=== PATIENT | female | born 1965 | race Caucasian/White ===

== ENCOUNTER 2019-12-25 18:02 | Emergency (ER) | payer OTHER ==
[~2019-12-25] VITALS: Ht 167.6 cm; Wt 113.6 kg
--- NOTE | 2019-12-25 18:42 | PHYS DOC ---
General Adult EDM: Chief Complaint: HEADACHE HPI: HPI: 54-year-old female presents with migraine headache. She tells me that she has had this headache for about a week. It is in the front of her head behind her eyes. This is typical for her. She does state that this episode is worse than what she has had recently. He has tried her home remedies without relief. She denies trauma or falls. She denies fever or chills. She does have some sinus congestion and postnasal drip. No known COVID-19 exposures. Review of Systems: Review of Systems: Constitutional: Denies fever or chills Eyes: Denies change in visual acuity HENT: Nasal congestion. Denies sore throat Respiratory: Denies cough or shortness of breath Cardiovascular: Denies chest pain or edema GI: Denies abdominal pain, nausea, vomiting, bloody stools or diarrhea : Denies dysuria Musculoskeletal: Denies back pain or joint pain Integument: Denies rash Neurologic: Headache. Denies focal weakness or sensory changes Endocrine: Denies polyuria or polydipsia Lymphatic: Denies swollen glands Psychiatric: Denies depression or anxiety Current Medications: Current Meds: Current Medications Medications (Trade) Dose Ordered Sig/Tati Start Time Stop Time Status Last Admin Dose Admin Diphenhydramine HCl (Benadryl) 50 mg 1X ONCE 12/25/19 18:45 12/25/19 18:46 Ketorolac Tromethamine (Toradol 30mg Vial) 30 mg 1X ONCE 12/25/19 18:45 12/25/19 18:46 Ondansetron HCl (Zofran) 4 mg 1X ONCE 12/25/19 18:45 12/25/19 18:46 Sodium Chloride 1,000 ml @ 1,000 mls/hr 1X ONCE 12/25/19 19:00 12/25/19 19:59 Allergies: Allergies: Allergies Coded Allergies Type Severity Reaction Last Updated Verified codeine Allergy Intermediate 12/25/19 Yes haloperidol Allergy Intermediate 12/25/19 Yes metoclopramide Allergy Intermediate 12/25/19 Yes prochlorperazine Allergy Intermediate 12/25/19 Yes Physical Exam: PE: Constitutional: Well developed, well nourished, no acute distress, non-toxic appearance. [] HENT: Normocephalic, atraumatic, bilateral external ears normal, oropharynx moist, no oral exudates, nose normal. [] Eyes: PERRLA, EOMI, conjunctiva normal, no discharge. Photophobia. [] Neck: Normal range of motion, no tenderness, supple, no stridor. [] Cardiovascular: Heart rate regular rhythm, no murmur [] Lungs & Thorax: Bilateral breath sounds clear to auscultation [] Abdomen: Vomiting. Bowel sounds normal, soft, no tenderness, no masses, no pulsatile masses. [] Skin: Warm, dry, no erythema, no rash. [] Back: No tenderness, no CVA tenderness. [] Extremities: No tenderness, no cyanosis, no clubbing, ROM intact, no edema. [] Neurologic: Alert and oriented X 3, normal motor function, normal sensory function, no focal deficits noted. [] Psychologic: Affect normal, judgement normal, mood normal. [] EKG: EKG: [] Radiology/Procedures: Radiology/Procedures: [] Heart Score: Risk Factors: Risk Factors: DM, Current or recent (<one month) smoker, HTN, HLP, family history of CAD, obesity. Risk Scores: Score 0 - 3: 2.5% MACE over next 6 weeks - Discharge Home Score 4 - 6: 20.3% MACE over next 6 weeks - Admit for Clinical Observation Score 7 - 10: 72.7% MACE over next 6 weeks - Early Invasive Strategies Course & Med Decision Making: Course & Med Decision Making Pertinent Labs and Imaging studies reviewed. (See chart for details) The patient was given 50 mg of Benadryl, 30 mg of Toradol, liter normal saline, 4 mg of Zofran, 10 mg of dexamethasone IV and 25 mg of Phenergan rectally. Patient still had a headache so I gave her 2 mg of Ativan and eventually 1 mg of Dilaudid. She is finally feeling better would like to go home. She is stable for discharge at this time. The patient's labs are unremarkable. [] Dragon Disclaimer: Willy Disclaimer: This electronic medical record was generated, in whole or in part, using a voice recognition dictation system. Departure Departure: Impression: Primary Impression: Migraine headache Qualified Codes: G43.011 - Migraine without aura, intractable, with status migrainosus Disposition: 01 DC HOME SELF CARE/HOMELESS Condition: STABLE Referrals: PCP,NO (PCP) Patient Instructions: Migraine Headache, [id number] RENEE MOYA DO Dec 25, 2019 18:42
[2019-12-25] MEDS ORDERED: KETOROLAC 30 MG/ML VIAL. IVP ONE (18:45)
[2019-12-25] MEDS ORDERED: ONDANSETRON PF 4 MG/2 ML VIAL. IVP ONE (18:45)
[2019-12-25] MEDS ORDERED: diphenhydrAMINE 50 MG/ML VIAL IVP ONE (18:45)
[2019-12-25] MEDS ORDERED: DEXAMETHASONE SOD PHOS 10 MG/ML VIAL. IV ONE (19:00)
[2019-12-25] MEDS ORDERED: IV NORMAL SALINE 1,000ML 1,000 ML IV ONE (19:00)
[2019-12-25] MEDS ORDERED: PROMETHAZINE 25 MG SUPP.RECT. ONE (19:14)
[2019-12-25] MEDS ORDERED: PROMETHAZINE 25 MG SUPP.RECT. PR ONE (19:30)
[2019-12-25 19:31] LABS: BASO % 1 % (0-3); EOS % 1 % (0-3); HEMATOCRIT 37.4 % (36.0-47.0); HEMOGLOBIN 12.6 g/dL (12.0-15.5); LYMPH # 1.5 x10^3/uL (1.0-4.8); LYMPH % 16 % (24-48); MEAN CORPUSCULAR HEMOGLOBIN 29 pg (25-35); MEAN CORPUSCULAR HGB CONC 34 g/dL (31-37); MEAN CORPUSCULAR VOLUME 84 fL (79-100); MONO # 0.3 x10^3/uL (0.0-1.1); MONO % 4 % (0-9); NEUT % 79 % (31-73); PLATELET COUNT 296 x10^3/uL (140-400); RED BLOOD COUNT 4.43 x10^6/uL (3.50-5.40); RED CELL DISTRIBUTION WIDTH 13.7 % (11.5-14.5); WHITE BLOOD COUNT 8.9 x10^3/uL (4.0-11.0)
[2019-12-25 19:34] LABS: CALCIUM 8.7 mg/dL (8.5-10.1); GFR 57.8; POTASSIUM 3.7 mmol/L (3.5-5.1)
[2019-12-25 19:42] LABS: ALBUMIN 3.9 g/dL (3.4-5.0); ALBUMIN/GLOBULIN RATIO 1.1 (1.0-1.7); TOTAL BILIRUBIN 0.3 mg/dL (0.2-1.0); TOTAL PROTEIN 7.6 g/dL (6.4-8.2)
[2019-12-25] MEDS ORDERED: QUET50TA5 PO (19:47)
[2019-12-25] MEDS ORDERED: phenergan supp RC (19:47)
[2019-12-25] MEDS ORDERED: SERT100T PO (19:47)
[2019-12-25] MEDS ORDERED: ALPR0.5T6 PO (19:47)
[2019-12-25] MEDS ORDERED: OMEP20CA16 PO (19:47)
[2019-12-25] MEDS ORDERED: ONDA4TAB7 PO (19:47)
[2019-12-25] MEDS ORDERED: RIZA10TA PO (19:47)
[2019-12-25] MEDS ORDERED: ALBU2.5V8 INH (19:47)
[2019-12-25] MEDS ORDERED: CLON0.5T4 PO (19:47)
[2019-12-25] MEDS ORDERED: TRAZ-125 PO (19:47)
[2019-12-25] MEDS ORDERED: HYDROmorphone PF 1 MG/ML DISP.SYRIN IVP ONE (21:00)
[2019-12-25 21:02] LABS: BARBITURATES NEG (NEG); BENZODIAZEPINES NEG (NEG); CANNABINOIDS NEG (NEG); COCAINE NEG (NEG); METHADONE NEG (NEG); OPIATES NEG (NEG); PHENCYCLIDINE NEG (NEG)
[2019-12-25 21:03] LABS: AMPHETAMINE/METHAMPHETAMINE NEG (NEG)
[2019-12-25 21:07] LABS: BILIRUBIN,URINE NEG (NEG); CLARITY,URINE CLEAR; COLOR,URINE YELLOW; GLUCOSE,URINE NEG (NEG)
[2019-12-25 21:08] LABS: BACTERIA,URINE 0 /HPF (0-FEW); NITRITE,URINE NEG (NEG); RBC,URINE RARE /HPF (0-2); SQUAMOUS EPITHELIAL CELL,UR OCC /LPF; UROBILINOGEN,URINE 0.2 mg/dL (0.2 mg/dL); WBC,URINE OCC /HPF (0-4)
[2019-12-25 22:20] VITALS: BP 137/84
== END 2019-12-25 22:25 | disposition home or self-care (01) ==
LOC: ER 18:02
DX: G43.011 Migraine without aura, intractable, with status migrainosus (principal); Z88.5 Allergy status to narcotic agent; Z88.8 Allergy status to other drugs, medicaments and biological substances
CPT/HCPCS: 36415; 80053; 80307; 81001; 85025; 96361; 96374; 96375; 99284; J1100; J1170; J1200; J1885; J2060; J2405; J7030

== ENCOUNTER 2020-01-01 23:35 | Emergency (ER) | payer OTHER ==
[~2020-01-01] VITALS: Ht 167.6 cm; Wt 113.6 kg
[~2020-01-01 23:35] MED LIST: ALBU2.5V8 INH; ALPR0.5T6 PO; CLON0.5T4 PO; OMEP20CA16 PO; ONDA4TAB7 PO; QUET50TA5 PO; RIZA10TA PO; SERT100T PO; TRAZ-125 PO; phenergan supp RC
[2020-01-01] MEDS ORDERED: IV NORMAL SALINE 1,000ML 1,000 ML IV ONE (23:45)
--- NOTE | 2020-01-01 23:54 | PHYS DOC ---
Past History Past Medical History: Anxiety, Bipolar, Depression, Diabetes, GERD, IBS, Migraines, Sinusitis, Other Additional Past Medical Histor: Geovanny's auto immune, sleep apnea,bad knees,incontinence, sinus mass;TBI Past Surgical History: , Tonsillectomy, Other Additional Past Surgical Histo: nasal surgery-bone spur Alcohol Use: None General Adult HPI: HPI: History obtained from patient. Patient is a 54-year-old female with multiple comorbidities including Geovanny's thyroiditis, chronic migraines who presents with complaint headache. She states he has had a headache for the past 2 weeks. She notes the first headache began 2 weeks ago. She was seen her facility 5 days ago and did get symptomatic relief. States the headache returned the following day. States that been constant for 3 days. States it is frontal and throbbing in nature. Notes his headache is similar to previous headaches. Does state that she has been seen by multiple neurologist. States she is transitioning between neurologist. States she does have multiple allergies to medications including codeine, Haldol, Reglan, and Compazine. She states these reactions are anaphylactic in nature. Denies fevers. Does note nausea and vomiting. Does note photophobia and phonophobia. Does note some mild clear nasal discharge that is been present constantly. She says she only has this. States she has tried Maxalt at home with minimal relief. She has tried oral Zofran with minimal relief. Patient denies acute onset of headache reaching maximal intensity in under one hour. This is neither the worst headache that Patient has ever experienced, nor was the onset timed with exertional activity or trauma. Patient has not experienced any fever, unusual neck pain or stiffness, syncope, or near syncope. Patient denies numbness, tingling, or weakness of the extremities. Patient also denies personal history of intracranial hemorrhage (including SAH), aneurysm, or AV malformation. Review of Systems: Review of Systems: Constitutional: Denies fever or chills Eyes: Denies change in visual acuity HENT: Denies nasal congestion or sore throat Respiratory: Denies cough or shortness of breath Cardiovascular: Denies chest pain or edema GI: Denies abdominal pain, nausea, vomiting, bloody stools or diarrhea : Denies dysuria Musculoskeletal: Denies back pain or joint pain Integument: Denies rash Neurologic: Positive for headache Endocrine: Denies polyuria or polydipsia Lymphatic: Denies swollen glands Psychiatric: Denies depression or anxiety Current Medications: Current Meds: Current Medications Medications (Trade) Dose Ordered Sig/Tati Start Time Stop Time Status Last Admin Dose Admin Sodium Chloride 1,000 ml @ 1,000 mls/hr 1X ONCE 01/01/20 23:45 01/02/20 00:44 Allergies: Allergies: Allergies Coded Allergies Type Severity Reaction Last Updated Verified codeine Allergy Intermediate 12/25/19 Yes haloperidol Allergy Intermediate 12/25/19 Yes metoclopramide Allergy Intermediate 12/25/19 Yes prochlorperazine Allergy Intermediate 12/25/19 Yes Physical Exam: PE: Constitutional: Well developed, well nourished, no acute distress, non-toxic appearance. [] HENT: Normocephalic, atraumatic, bilateral external ears normal, oropharynx moist, no oral exudates, nose normal. [] Eyes: PERRLA, EOMI, conjunctiva normal, no discharge. [] Neck: Normal range of motion, no tenderness, supple, no stridor. [] Cardiovascular:Heart rate regular rhythm, no murmur [] Lungs & Thorax: Bilateral breath sounds clear to auscultation [] Abdomen: soft, no tenderness, no masses, no pulsatile masses. [] Skin: Warm, dry, no erythema, no rash. [] Back: No tenderness, no CVA tenderness. [] Extremities: No tenderness, no cyanosis, no clubbing, ROM intact, no edema. [] Neurologic: Alert with intact cognitive function. No aphasia, dysarthria, or neglect. GCS 15. Pupils 3 mm briskly reactive b/l. No APD present. Cranial nerves 2-12 grossly intact; no facial asymmetry present, tongue midline, shoulder shrugging strength intact. Strength 5/5 and symmetric throughout. Light touch sensation intact throughout. Cerebellar testing appropriate without evidence of dysdiadochokinesia. DTR's 2+ in all 4 extremities. Negative pronator drift bilaterally. Gait normal Psychologic: Affect normal, judgement normal, mood normal. [] Current Patient Data: Labs: Laboratory Tests Test 01/02/20 00:30 White Blood Count 8.5 x10^3/uL Red Blood Count 4.46 x10^6/uL Hemoglobin 12.8 g/dL Hematocrit 37.7 % Mean Corpuscular Volume 85 fL Mean Corpuscular Hemoglobin 29 pg Mean Corpuscular Hemoglobin Concent 34 g/dL Red Cell Distribution Width 13.5 % Platelet Count 309 x10^3/uL Neutrophils (%) (Auto) 73 % Lymphocytes (%) (Auto) 23 % Monocytes (%) (Auto) 4 % Eosinophils (%) (Auto) 0 % Basophils (%) (Auto) 1 % Neutrophils # (Auto) 6.2 x10^3uL Lymphocytes # (Auto) 1.9 x10^3/uL Monocytes # (Auto) 0.3 x10^3/uL Eosinophils # (Auto) 0.0 x10^3/uL Basophils # (Auto) 0.0 x10^3/uL Sodium Level 139 mmol/L Potassium Level 3.9 mmol/L Chloride Level 101 mmol/L Carbon Dioxide Level 30 mmol/L Anion Gap 8 Blood Urea Nitrogen 11 mg/dL Creatinine 1.0 mg/dL Estimated GFR (Cockcroft-Gault) 57.8 Glucose Level 110 mg/dL Calcium Level 9.2 mg/dL Current Medications Medications (Trade) Dose Ordered Sig/Tati Route PRN Reason Start Time Stop Time Status Last Admin Dose Admin Sodium Chloride 1,000 ml @ 1,000 mls/hr 1X ONCE IV 01/01/20 23:45 01/02/20 00:44 DC 01/02/20 00:27 Ondansetron HCl (Zofran) 4 mg 1X ONCE IVP 01/02/20 00:00 01/02/20 00:01 DC 01/02/20 00:27 Ketorolac Tromethamine (Toradol 15mg Vial) 15 mg 1X ONCE IVP 01/02/20 00:00 01/02/20 00:02 DC 01/02/20 00:28 Dexamethasone Sodium Phosphate (Decadron) 10 mg 1X ONCE IV 01/02/20 00:00 01/02/20 00:02 DC 01/02/20 00:28 EKG: EKG: [] Radiology/Procedures: Radiology/Procedures: [address] [address] IMAGING REPORT Signed PATIENT: JUAN QUIROS ACCOUNT: [id number] : 1965 LOCATION: ER AGE: 54 SEX: F EXAM STATUS: PRE ER ORD. PHYSICIAN: MAN GAY DO REASON: LIU PROCEDURE: CT HEAD WO CONTRAST INDICATION: Reason: LIU / Spl. Instructions: / History: COMPARISON: None. TECHNIQUE: Axial CT images obtained through the head without intravenous contrast. One or more of the following individualized dose reduction techniques were utilized for this examination: 1. Automated exposure control; 2. Adjustment of the mA and/or kV according to patient size; 3. Use of iterative reconstruction technique. FINDINGS: No intracranial hemorrhage. No midline shift. Basal cisterns patent. Ventricles and sulci are unremarkable. No acute osseous abnormality. Orbits and paranasal sinuses unremarkable. IMPRESSION: * No acute intracranial hemorrhage. Electronically signed by: Gavin Flores MD (01/02/2020 12:48 AM) [id number] DICTATED AND SIGNED BY: GAVIN FLORES MD DATE: 01/02/20 0048 CC: VIKY JAUREGUI DO; MAN GAY DO ~ [] Heart Score: Risk Factors: Risk Factors: DM, Current or recent (<one month) smoker, HTN, HLP, family history of CAD, obesity. Risk Scores: Score 0 - 3: 2.5% MACE over next 6 weeks - Discharge Home Score 4 - 6: 20.3% MACE over next 6 weeks - Admit for Clinical Observation Score 7 - 10: 72.7% MACE over next 6 weeks - Early Invasive Strategies Course & Med Decision Making: Course & Med Decision Making Pertinent Labs and Imaging studies reviewed. (See chart for details) [] Patient is a 54-year-old female who presents with chief complaint of migraine headache. She states she has these headaches frequently. States today symptoms are no different than normal. CT head imaging was obtained given the patient was seen a few days ago and did not have head imaging. This was unr emarkable. Labs been unremarkable. Patient was given multiple medications to treat her migraine per her migraine protocol that she presented with. Multiple medications were used and did get some relief of her headache. Given her multiple reported anaphylactic allergies to common migraine medications these were avoided. Repeat examination patient's headache has improved significantly. Repeat neurologically remained stable. Overall low suspicion for emergent etiology regarding her headache. She was encouraged to follow-up with her neurologist for further care. Return precautions were discussed and understood. She is stable for discharge home. Willy Disclaimer: Willy Disclaimer: This electronic medical record was generated, in whole or in part, using a voice recognition dictation system. Departure Departure: Impression: Primary Impression: Headache Qualified Codes: R51.9 - Headache, unspecified Disposition: 01 DC HOME SELF CARE/HOMELESS Condition: STABLE Referrals: VIKY JAUREGUI DO (PCP) Patient Instructions: Recurrent Migraine Headache Additional Instructions: Please follow-up with your neurologist in the next 2 to 3 days. [facility]rology - [place] [address] [place] [address] MAN GAY DO Jan 01, 2020 23:54
[2020-01-02] MEDS ORDERED: KETOROLAC 15 MG/ML VIAL. IVP ONE
[2020-01-02] MEDS ORDERED: DEXAMETHASONE SOD PHOS 4 MG/ML VIAL. IV ONE
[2020-01-02] MEDS ORDERED: ONDANSETRON PF 4 MG/2 ML VIAL. IVP ONE
[2020-01-02 00:51] LABS: BASO % 1 % (0-3); EOS % 0 % (0-3); HEMATOCRIT 37.7 % (36.0-47.0); HEMOGLOBIN 12.8 g/dL (12.0-15.5); LYMPH # 1.9 x10^3/uL (1.0-4.8); LYMPH % 23 % (24-48); MEAN CORPUSCULAR HEMOGLOBIN 29 pg (25-35); MEAN CORPUSCULAR HGB CONC 34 g/dL (31-37); MEAN CORPUSCULAR VOLUME 85 fL (79-100); MONO # 0.3 x10^3/uL (0.0-1.1); MONO % 4 % (0-9); NEUT # 6.2 x10^3uL (1.8-7.7); NEUT % 73 % (31-73); PLATELET COUNT 309 x10^3/uL (140-400); RED BLOOD COUNT 4.46 x10^6/uL (3.50-5.40); RED CELL DISTRIBUTION WIDTH 13.5 % (11.5-14.5); WHITE BLOOD COUNT 8.5 x10^3/uL (4.0-11.0)
--- NOTE | 2020-01-02 00:51 | RAD ---
INDICATION: Reason: LIU / Spl. Instructions: / History: COMPARISON: None. TECHNIQUE: Axial CT images obtained through the head without intravenous contrast. One or more of the following individualized dose reduction techniques were utilized for this examination: 1. Automated exposure control; 2. Adjustment of the mA and/or kV according to patient size; 3. Use of iterative reconstruction technique. FINDINGS: No intracranial hemorrhage. No midline shift. Basal cisterns patent. Ventricles and sulci are unremarkable. No acute osseous abnormality. Orbits and paranasal sinuses unremarkable. IMPRESSION: * No acute intracranial hemorrhage. Electronically signed by: Gavin Sandoval MD (01/02/2020 12:48 AM) [id number]
[2020-01-02 00:57] LABS: CALCIUM 9.2 mg/dL (8.5-10.1); GFR 57.8; POTASSIUM 3.9 mmol/L (3.5-5.1)
[2020-01-02] MEDS ORDERED: diphenhydrAMINE 50 MG/ML VIAL IVP ONE (01:30)
[2020-01-02] MEDS ORDERED: PROMETHAZINE 12.5 MG SUPP.RECT. PR ONE (01:30)
[2020-01-02] MEDS ORDERED: MAGNESIUM SULFATE 2GM 50 ML IV ONE (01:30)
[2020-01-02] MEDS ORDERED: SUMAtriptan SUCCINATE 50 MG TABLET PO ONE ×2 (02:30→02:39)
[2020-01-02 03:15] VITALS: BP 115/61
== END 2020-01-02 03:15 | disposition home or self-care (01) ==
LOC: ER 23:35
DX: G43.909 Migraine, unspecified, not intractable, without status migrainosus (principal); R11.2 Nausea with vomiting, unspecified; H53.143 Visual discomfort, bilateral; F41.9 Anxiety disorder, unspecified; F31.9 Bipolar disorder, unspecified; E11.9 Type 2 diabetes mellitus without complications; K21.9 Gastro-esophageal reflux disease without esophagitis; K58.9 Irritable bowel syndrome, unspecified; Z88.5 Allergy status to narcotic agent; Z88.8 Allergy status to other drugs, medicaments and biological substances
CPT/HCPCS: 36415; 70450; 80048; 81025; 85025; 96361; 96365; 96366; 96375; 99285; J1100; J1200; J1885; J2405; J3475; J7030

== ENCOUNTER 2020-05-06 15:48 | Emergency (ER) | payer OTHER ==
[~2020-05-06] VITALS: Ht 167.6 cm; Wt 120.0 kg
[2020-05-06 16:57] LABS: BASO % 1 % (0-3); EOS # 0.1 x10^3/uL (0.0-0.7); EOS % 2 % (0-3); HEMATOCRIT 36.5 % (36.0-47.0); HEMOGLOBIN 12.3 g/dL (12.0-15.5); LYMPH # 2.1 x10^3/uL (1.0-4.8); LYMPH % 28 % (24-48); MEAN CORPUSCULAR HEMOGLOBIN 28 pg (25-35); MEAN CORPUSCULAR HGB CONC 34 g/dL (31-37); MEAN CORPUSCULAR VOLUME 84 fL (79-100); MONO # 0.4 x10^3/uL (0.0-1.1); MONO % 5 % (0-9); NEUT # 4.9 x10^3uL (1.8-7.7); NEUT % 64 % (31-73); PLATELET COUNT 297 x10^3/uL (140-400); RED BLOOD COUNT 4.36 x10^6/uL (3.50-5.40); RED CELL DISTRIBUTION WIDTH 13.5 % (11.5-14.5); WHITE BLOOD COUNT 7.5 x10^3/uL (4.0-11.0)
--- NOTE | 2020-05-06 16:59 | EKG ---
[address] [address] Test Date: 2020-05-06 Test Time: 16:03:52 Pat Name: JUAN QUIROS Department: Room: Gender: F Senior Production Manager: [place] : 1965 Requested By: CAYETANO FORTUNE Order Number: [id number] Reading MD: Measurements Intervals [place] Rate: 84 P: 61 FL: 154 QRS: 27 QRSD: 80 T: 34 QT: 370 QTc: 440 Interpretive Statements SINUS RHYTHM NORMAL ECG RI6.02 No previous ECG available for comparison
--- NOTE | 2020-05-06 17:11 | RAD ---
Exam: Chest one view INDICATION: Short of air TECHNIQUE: Frontal view of the chest Comparisons: None FINDINGS: The cardiomediastinal silhouette and pulmonary vessels are within normal limits. The lung and pleural spaces are clear. IMPRESSION: No acute cardiopulmonary process. Electronically signed by: Ector Molina MD (05/06/2020 5:09 PM) RAINA
[2020-05-06 17:17] LABS: ANION GAP 10 (6-14); BLOOD UREA NITROGEN 15 mg/dL (7-20); BUN/CREATININE RATIO 19 (6-20); CALCIUM 8.7 mg/dL (8.5-10.1); CARBON DIOXIDE 26 mmol/L (21-32); CHLORIDE 106 mmol/L (98-107); CREATININE 0.8 mg/dL (0.6-1.0); GFR 74.7; GLUCOSE 116 mg/dL (70-99); POTASSIUM 3.7 mmol/L (3.5-5.1); SODIUM 142 mmol/L (136-145)
[2020-05-06 17:33] LABS: ALBUMIN 3.5 g/dL (3.4-5.0); ALBUMIN/GLOBULIN RATIO 0.9 (1.0-1.7); ALK PHOS 94 U/L (46-116); ALT (SGPT) 22 U/L (14-59); AST (SGOT) 13 U/L (15-37); LIPASE 114 U/L (73-393); MAGNESIUM 1.8 mg/dL (1.8-2.4); TOTAL BILIRUBIN 0.2 mg/dL (0.2-1.0); TOTAL PROTEIN 7.5 g/dL (6.4-8.2)
--- NOTE | 2020-05-06 18:02 | PHYS DOC ---
Past History Past Medical History: Anxiety, Asthma, Diabetes, Fibromyalgia, GERD, Hypothyroid, Migraines Additional Past Medical Histor: aspiration D/T reflux, sleep apnea, bipolar, Hashimotos Past Surgical History: Cholecystectomy, , Tonsillectomy Additional Past Surgical Histo: nasal surgery-bone spur Alcohol Use: None Adult General Chief Complaint Chief Complaint: MULTIPLE COMPLAINTS HPI HPI Patient is a 54-year-old female patient with history of anxiety, depression, fibromyalgia, hypertension, acid reflux, asthma, migraine headaches among other illnesses who presents to the ED today with multiple complaints. Patient is complaining of chronic jaw pain. She states she typically bites her teeth and usually has pain from this. She states today she called [facility] and they gave an appointment for tomorrow on condition she comes to the ED chest pain/jaw pain rule out. She states her jaw pain is not cardiac, she states this is a chronic problem. Patient is also complaining of shortness of breath that has been going on for what sounds like weeks. She states she is being checked out for this and they did work-up including a Covid test which was negative. She states the Covid te st was done last week. She states her symptoms are worse on exertion. She also states she has had a chronic cough for weeks. Denies any chest pain. Patient is also complaining of acid reflux which is chronic for her. She states she was on several medications and one of them Dexilent was stopped because her insurance will not pay for it. She also reports losing 2 family members in the last 1 month including the father who of cancer. Denies any suicidal homicidal ideations Review of Systems Review of Systems Constitutional: Denies fever or chills [] Eyes: Denies change in visual acuity, redness, or eye pain [] HENT: Denies nasal congestion or sore throat [] Respiratory: Denies cough or shortness of breath [] Cardiovascular: No additional information not addressed in HPI [] GI: Denies abdominal pain, nausea, vomiting, bloody stools or diarrhea [] : Denies dysuria or hematuria [] Musculoskeletal: Denies back pain or joint pain [] Integument: Denies rash or skin lesions [] Neurologic: Denies headache, focal weakness or sensory changes [] Psych: Reports being under stress All other systems were reviewed and found to be within normal limits, except as documented in this note. Allergies Allergies Allergies Coded Allergies Type Severity Reaction Last Updated Verified codeine Allergy Intermediate 05/06/20 Yes haloperidol Allergy Intermediate 05/06/20 Yes metoclopramide Allergy Intermediate 05/06/20 Yes prochlorperazine Allergy Intermediate 05/06/20 Yes Physical Exam Physical Exam Constitutional: Well developed, well nourished, no acute distress, non-toxic appearance. [] HENT: Normocephalic, atraumatic, bilateral external ears normal, oropharynx moist, no oral exudates, nose normal. [] Eyes: PERRLA, EOMI, conjunctiva normal, no discharge. [] Neck: Normal range of motion, no tenderness, supple, no stridor. [] Cardiovascular:Heart rate regular rhythm, no murmur [] Lungs & Thorax: Bilateral breath sounds clear to auscultation [] Abdomen: Bowel sounds normal, soft, no tenderness, no masses, no pulsatile masses. [] Skin: Warm, dry, no erythema, no rash. [] Back: No tenderness, no CVA tenderness. [] Extremities: No tenderness, no cyanosis, no clubbing, ROM intact, no edema. [] Neurologic: Alert and oriented X 3, normal motor function, normal sensory function, no focal deficits noted. [] Psychologic: Affect normal, judgement normal, mood normal. [] Current Patient Data Vital Signs Vital Signs Date Time Temp Pulse Resp B/P (MAP) Pulse Ox O2 Delivery O2 Flow Rate FiO2 05/06/20 16:01 98.2 90 30 118/50 (72) 98 Lab Results Laboratory Tests Test 05/06/20 16:15 White Blood Count 7.5 x10^3/uL (4.0-11.0) Red Blood Count 4.36 x10^6/uL (3.50-5.40) Hemoglobin 12.3 g/dL (12.0-15.5) Hematocrit 36.5 % (36.0-47.0) Mean Corpuscular Volume 84 fL (79-100) Mean Corpuscular Hemoglobin 28 pg (25-35) Mean Corpuscular Hemoglobin Concent 34 g/dL (31-37) Red Cell Distribution Width 13.5 % (11.5-14.5) Platelet Count 297 x10^3/uL (140-400) Neutrophils (%) (Auto) 64 % (31-73) Lymphocytes (%) (Auto) 28 % (24-48) Monocytes (%) (Auto) 5 % (0-9) Eosinophils (%) (Auto) 2 % (0-3) Basophils (%) (Auto) 1 % (0-3) Neutrophils # (Auto) 4.9 x10^3uL (1.8-7.7) Lymphocytes # (Auto) 2.1 x10^3/uL (1.0-4.8) Monocytes # (Auto) 0.4 x10^3/uL (0.0-1.1) Eosinophils # (Auto) 0.1 x10^3/uL (0.0-0.7) Basophils # (Auto) 0.0 x10^3/uL (0.0-0.2) D-Dimer (Linda) 0.46 mg/L (0.00-0.50) Sodium Level 142 mmol/L (136-145) Potassium Level 3.7 mmol/L (3.5-5.1) Chloride Level 106 mmol/L (98-107) Carbon Dioxide Level 26 mmol/L (21-32) Anion Gap 10 (6-14) Blood Urea Nitrogen 15 mg/dL (7-20) Creatinine 0.8 mg/dL (0.6-1.0) Estimated GFR (Cockcroft-Gault) 74.7 BUN/Creatinine Ratio 19 (6-20) Glucose Level 116 mg/dL (70-99) H Calcium Level 8.7 mg/dL (8.5-10.1) Magnesium Level 1.8 mg/dL (1.8-2.4) Total Bilirubin 0.2 mg/dL (0.2-1.0) Aspartate Amino Transferase (AST) 13 U/L (15-37) L Alanine Aminotransferase (ALT) 22 U/L (14-59) Alkaline Phosphatase 94 U/L (46-116) Creatine Kinase 32 U/L (26-192) Creatine Kinase MB (Mass) < 0.5 ng/mL (0.0-3.6) Creatine Kinase MB Relative Index 1.6 % (0-4) Troponin I Quantitative < 0.017 ng/mL (0-0.055) GR-Mqj-H-Type Natriuretic Peptide 74 pg/mL (0-124) Total Protein 7.5 g/dL (6.4-8.2) Albumin 3.5 g/dL (3.4-5.0) Albumin/Globulin Ratio 0.9 (1.0-1.7) L Lipase 114 U/L (73-393) EKG EKG [address] Crowell [facility] rhythm HR 84 no STEMI[] Radiology/Procedures Radiology/Procedures []PROCEDURE: PORTABLE CHEST 1V Exam: Chest one view INDICATION: Short of air TECHNIQUE: Frontal view of the chest Comparisons: None FINDINGS: The cardiomediastinal silhouette and pulmonary vessels are within normal limits. The lung and pleural spaces are clear. IMPRESSION: No acute cardiopulmonary process. Electronically signed by: Ector Quezada MD (05/06/2020 5:09 PM) [facility] DICTATED AND SIGNED BY: ECTOR QUEZADA MD DATE: 05/06/201707 CC: CAYETANO FORTUNE APRN; CHAZ CASTILLO DO ~MTH0 0 Heart Score HEART Score for Chest Pain: HEART Score for Chest Pain Response (Comments) Value History Slighlty/Non-Suspicious 0 ECG Normal 0 Age >45 - < 65 1 Risk Factors 1 or 2 Risk Factors 1 Troponin < Normal Limit 0 Total 2 Risk Factors: Risk Factors: DM, Current or recent (<one month) smoker, HTN, HLP, family history of CAD, obesity. Risk Scores: Risk Factors: DM, Current or recent (<one month) smoker, HTN, HLP, family history of CAD, obesity. Course & Med Decision Making Course & Med Decision Making Pertinent Labs and Imaging studies reviewed. (See chart for details) This is a 54-year-old female patient presenting to the ED today with multiple complaints, please see HPI. Patient's work-up is negative. Discharge to home. Has an appointment with Charlie tomorrow. Dragon Disclaimer Dragon Disclaimer This electronic medical record was generated, in whole or in part, using a voice recognition dictation system. Departure Departure: Impression: Primary Impression: GERD (gastroesophageal reflux disease) Additional Impressions: Shortness of breath Jaw pain Stress Disposition: 01 DC HOME SELF CARE/HOMELESS Condition: STABLE Referrals: CHAZ CASTILLO DO (PCP) follow up with Charlie tomorrow Patient Instructions: Diet for Gastroesophageal Reflux Disease, Adult, Gastroesophageal Reflux Disease, Adult, Shortness of Breath, [id number], Stress Additional Instructions: Please follow up with Charlie tomorrow Problem Qualifiers Primary Impression: GERD (gastroesophageal reflux disease) Esophagitis presence: esophagitis presence not specified Qualified Codes: K21.9 - Gastro-esophageal reflux disease without esophagitis CAYETANO FORTUNE APRN May 06, 2020 18:02
[2020-05-06 19:28] LABS: BACTERIA,URINE 0 /HPF (0-FEW); BILIRUBIN,URINE NEG (NEG); CLARITY,URINE CLEAR; COLOR,URINE YELLOW; GLUCOSE,URINE NEG (NEG); NITRITE,URINE NEG (NEG); RBC,URINE 0 /HPF (0-2); UROBILINOGEN,URINE 0.2 mg/dL (0.2 mg/dL); WBC,URINE 0 /HPF (0-4)
[2020-05-06 19:47] VITALS: BP 111/50
[2020-05-06 19:48] LABS: BARBITURATES NEG (NEG); BENZODIAZEPINES NEG (NEG); CANNABINOIDS NEG (NEG); COCAINE NEG (NEG); METHADONE NEG (NEG); OPIATES NEG (NEG); PHENCYCLIDINE NEG (NEG)
[2020-05-06 19:58] LABS: AMPHETAMINE/METHAMPHETAMINE NEG (NEG)
== END 2020-05-06 20:15 | disposition home or self-care (01) ==
LOC: ER 15:48
DX: K21.9 Gastro-esophageal reflux disease without esophagitis (principal); R06.02 Shortness of breath; R68.84 Jaw pain; F43.9 Reaction to severe stress, unspecified; R05 Cough; F41.9 Anxiety disorder, unspecified; J45.909 Unspecified asthma, uncomplicated; E11.9 Type 2 diabetes mellitus without complications; G43.909 Migraine, unspecified, not intractable, without status migrainosus; M79.7 Fibromyalgia; E03.9 Hypothyroidism, unspecified; Z90.49 Acquired absence of other specified parts of digestive tract; Z98.890 Other specified postprocedural states; Z88.5 Allergy status to narcotic agent; Z88.8 Allergy status to other drugs, medicaments and biological substances
CPT/HCPCS: 36415; 71045; 80053; 80307; 81001; 82553; 83690; 83735; 83880; 84443; 84484; 85025; 85379; 93005; 99285

== ENCOUNTER 2020-06-02 21:27 | Emergency (ER) | payer OTHER ==
[~2020-06-02] VITALS: Ht 167.6 cm; Wt 118.5 kg
[2020-06-02] MEDS ORDERED: ONDANSETRON PF 4 MG/2 ML VIAL. IVP ONE (22:15)
[2020-06-02] MEDS ORDERED: DEXAMETHASONE SOD PHOS 10 MG/ML VIAL. IV ONE (22:15)
[2020-06-02] MEDS ORDERED: KETOROLAC 15 MG/ML VIAL. IVP ONE (22:15)
[2020-06-02] MEDS ORDERED: FAMOTIDINE 20 MG/2 ML VIAL IVP ONE (22:15)
[2020-06-02] MEDS ORDERED: IV NORMAL SALINE 1,000ML 1,000 ML IV ONE (22:15)
[2020-06-02 22:30] LABS: BILIRUBIN,URINE NEG (NEG); CLARITY,URINE HAZY; COLOR,URINE YELLOW; GLUCOSE,URINE NEG (NEG); NITRITE,URINE POS (NEG); RBC,URINE OCC /HPF (0-2)
[2020-06-02] MEDS ORDERED: ONDANSETRON ODT 4 MG TAB.RAPDIS PO ONE (22:30)
[2020-06-02] MEDS ORDERED: diphenhydrAMINE 50 MG/ML VIAL IVP ONE (22:30)
[2020-06-02] MEDS ORDERED: BUTALB/APAP/CAFEIN 50/325/40MG TABLET. PO ONE (22:30)
[2020-06-02] MEDS ORDERED: DEXAMETHASONE 4 MG TABLET PO ONE (22:30)
[2020-06-02 22:31] LABS: BACTERIA,URINE FEW /HPF (0-FEW); SQUAMOUS EPITHELIAL CELL,UR OCC /LPF
--- NOTE | 2020-06-02 22:40 | PHYS DOC ---
Past History Past Medical History: Anxiety, Asthma, Diabetes, Fibromyalgia, GERD, Hypothyroid, Migraines Additional Past Medical Histor: aspiration D/T reflux, sleep apnea, bipolar, Hashimotos Past Surgical History: Cholecystectomy, , Tonsillectomy Additional Past Surgical Histo: nasal surgery-bone spur, knee surgery Alcohol Use: None General Adult EDM: Chief Complaint: MULTIPLE COMPLAINTS HPI: HPI: Sharron is a 54-year-old female who presents with a migraine, nausea, and vomiting. She states that she has taken her rescue medication for her migraine, but has reached the max dose. Her neurologist wanted her to come into the emergency room. Patient states this migraine is like many she has had in the past, the pain is 10 out of 10 at its worst, sharp, and is worse with light. In addition, the patient says that she is not able to take calcium channel blockers to prevent these instances as these medications drop her blood pressure too low. She is also complaining of "UTI symptoms". She states that she has had increased urination, and painful urination over the past few days. The patient is under a lot of psychological stress, as she states she has lost both her father, and her 's parents recently. Furthermore, her daughter recently went away to college, which has also led to some additional psychological stress. Review of Systems: Review of Systems: Constitutional: Denies fever or chills Eyes: Denies redness or eye pain HENT: Denies nasal congestion or sore throat Respiratory: Denies cough or shortness of breath Cardiovascular: Denies chest pain or palpitations GI: Reports abdominal pain, nausea, and vomiting. : Reports increased urination and dysuria, denies hematuria. Musculoskeletal: Denies back pain or joint pain Integument: Denies rash or skin lesions Neurologic: Denies focal weakness or sensory changes; reports migraine headache Complete systems were reviewed and found to be within normal limits, except as documented in this note. Current Medications: Current Meds: Current Medications Medications (Trade) Dose Ordered Sig/Tati Start Time Stop Time Status Last Admin Dose Admin Acetaminophen/ Butalbital/ Caffeine (Fioricet) 1 tab 1X ONCE 06/02/20 22:30 06/02/20 22:11 DC Dexamethasone (Decadron) 10 mg 1X ONCE 06/02/20 22:30 06/02/20 22:11 DC Dexamethasone Sodium Phosphate (Decadron) 10 mg 1X ONCE 06/02/20 22:15 06/02/20 22:16 DC Diphenhydramine HCl (Benadryl) 25 mg 1X ONCE 06/02/20 22:30 06/02/20 22:31 UNV Famotidine (Pepcid Vial) 20 mg 1X ONCE 06/02/20 22:15 06/02/20 22:16 DC Ketorolac Tromethamine (Toradol 15mg Vial) 15 mg 1X ONCE 06/02/20 22:15 06/02/20 22:16 DC Ondansetron HCl (Zofran Odt) 4 mg 1X ONCE 06/02/20 22:30 06/02/20 22:11 DC Ondansetron HCl (Zofran) 4 mg 1X ONCE 06/02/20 22:15 06/02/20 22:16 DC Sodium Chloride 1,000 ml @ 1,000 mls/hr 1X ONCE 06/02/20 22:15 06/02/20 23:14 Allergies: Allergies: Allergies Coded Allergies Type Severity Reaction Last Updated Verified codeine Allergy Intermediate 06/02/20 Yes haloperidol Allergy Intermediate 06/02/20 Yes metoclopramide Allergy Intermediate 06/02/20 Yes prochlorperazine Allergy Intermediate 06/02/20 Yes Physical Exam: PE: Constitutional: Well developed, well nourished, in tears HENT: Normocephalic, atraumatic Eyes: PERRL, EOMI, conjunctiva normal, no discharge, sensitivity to light bilaterally. Neck: Normal range of motion, no tenderness, supple Lungs & Thorax: No respiratory distress, equal chest rise and fall Abdomen: Soft, suprapubic tenderness with palpation Skin: Warm, dry, no erythema, no rash Back: No tenderness, no CVA tenderness Extremities: No tenderness, ROM intact, no edema Neurologic: Alert and oriented X 3, normal motor function, normal sensory function, no focal deficits noted Psychologic: Depressed affect, judgment normal, logical thought process Current Patient Data: Labs: Laboratory Tests Test 06/02/20 21:52 POC Urine HCG, Qualitative hcg negative (Negative) Vital Signs: Vital Signs Date Time Temp Pulse Resp B/P (MAP) Pulse Ox O2 Delivery O2 Flow Rate FiO2 06/02/20 21:37 98.3 86 114/83 (93) 97 EKG: EKG: [] Radiology/Procedures: Radiology/Procedures: [] Heart Score: C/O Chest Pain: N/A Course & Med Decision Making: Course & Med Decision Making Sharron is a 54-year-old female who presents to the emergency room with multiple complaints. Her main complaints are an acute migraine not amenable to her rescue medication, in addition to nausea and vomiting. She states that she contacted her neurologist who told her to come to the emergency room. This migraine is like many she has had in the past. In addition, she is complaining of "UTI symptoms". Her urinalysis shows that she is positive for nitrites, indicative of a noncomplicated UTI. She will be given a dose of Rocephin here and given a prescription for Keflex. In addition, during her stay she was given Benadryl, Zofran, Toradol, Fioricet, and steroids to control her migraine. Her vital signs are stable, and her neurologic exam is benign. Therefore, I believe head imaging is not needed at this time. Patient stable for discharge with outpatient follow-up with PCP. Discussed findings and plan with patient, who acknowledges understanding and agreement. Willy Disclaimer: Willy Disclaimer: This electronic medical record was generated, in whole or in part, using a voice recognition dictation system. Departure Departure: Impression: Primary Impression: Headache Qualified Codes: R51.9 - Headache, unspecified Additional Impressions: Urinary tract infection Qualified Codes: N30.00 - Acute cystitis without hematuria GERD (gastroesophageal reflux disease) Qualified Codes: K21.9 - Gastro-esophageal reflux disease without esophagitis Suspected 2019 novel coronavirus infection Disposition: 01 NC HOME SELF CARE/HOMELESS Condition: STABLE Referrals: VIKY JAUREGUI DO (PCP) ASHLYN GONZALEZ MD, SCOTT S MD Patient Instructions: Diet for Gastroesophageal Reflux Disease, Adult, Sway-ys-Vviy, Gastritis, Adult, Ojlp-qu-Sscp, Headache, FAQs, Urinary Tract Infection, Tssp-pi-Hcgn Additional Instructions: You have been tested for or diagnosed with COVID-19. It is an infection caused by a new type of coronavirus. COVID-19 will cause cold-like or mild flu symptoms in most. It can cause more severe symptoms like problems breathing in some. There is no treatment for COVID-19. The body will clear the infection over time. Self-care will help to ease discomfort. Steps to Take: Self-Care Rest as needed. Healthy habits may help you feel better. Steps include: Choose healthy foods including fruits and vegetables. Drink water throughout the day. Get plenty of sleep each night. If you smoke, try to quit. It may ease breathing. Avoid alcohol. Keep Others Healthy The virus can spread to others. Droplets are released every time you sneeze or cough. The droplets can get into the mouth, nose, or eyes of people near you and lead to infection. To lower the chances of spreading COVID-19 to others: Stay at home until your doctor has said it is safe to leave. If you tested positive this will mean staying isolated until both of the following are true: At least 7 days have passed since the start of illness. You are free of fever for at least 72 hours without the use of medicine. During this time: - Avoid public areas, events, or transportation. Do not return to work or school until your doctor has said it is safe to do so. - Call ahead if you need to go to a medical center. Let them know you may have COVID-19. It will help them guide you where to go. They may also ask you to wear a facemask when you come to the office. - If you call for emergency medical services, let them know you may have COVID- 19. While at home: - Try to avoid close contact with others. Stay about 6 feet away. - If possible, spend most of your time in a separate room from others. - Use a face mask if you will be in close contact with others such as sharing a room or vehicle. - Have someone wipe down common surfaces in the home. Use household slot editor every day on areas like doorknobs, counters, or sinks. - Cough or sneeze into a tissue. Throw the tissue away right after use. If a tissue is not available, cough or sneeze into your elbow. - Wash your hands often. Wash them after sneezing or coughing. Use soap and water and wash for at least 20 seconds. Alcohol based hand mold sheet cleaner can be used if soap and water is not available. - Do not prepare food for others. Avoid sharing personal items like forks, spoons, or toothbrushes. - Avoid close contact with pets while you are sick. There is no evidence of the virus passing to pets. This is a safety step until more is known about this virus. Isolation can be frustrating. Social interaction can help. Keep in touch with friends and family through phone and tech options. You can still interact with others in your home, just keep a safe distance of about 6 feet. Follow-up: Your doctors office will check in with you to see if there are any changes in your health. You may be asked to keep track of symptoms to share with them. They will also let you know when you are clear to be in public again. Problems to Look Out For: Contact your doctor if your recovery is not going as you expect. Get emergency care if you have problems such as: - Trouble breathing - Nonstop chest pain or pressure - Changes in awareness, confusion, or problems waking - Lips or face have bluish color - Worsening of symptoms If you think you have an emergency, call for emergency medical services right away. As taken from [facility] Promethazine Hcl (PROMETHAZINE HCL) 25 Mg Supp.rect 25 MG RC Q8HRS PRN for NAUSEA, #10 SUPP.RECT Prov: VERONICA TEJEDA DO 06/02/20 Cephalexin (CEPHALEXIN) 500 Mg Tablet 1 TAB PO TID for UTI for 7 Days, #21 TAB Prov: VERONICA TEJEDA DO 06/02/20 Butalb/Acetaminophen/Caffeine ([id number] 50-325-40) 1 Each Tablet 1 EACH PO Q6HRS PRN for HEADACHE, #14 TAB Prov: VERONICA TEJEDA DO 06/02/20 VERONICA TEJEDA DO Jun 02, 2020 22:40
[2020-06-02] MEDS ORDERED: BUTA1TAB23 PO (22:54)
[2020-06-02] MEDS ORDERED: CEPH500T PO (22:56)
[2020-06-02] MEDS ORDERED: IV NORMAL SALINE 50ML 50 ML ONE (22:57)
[2020-06-02] MEDS ORDERED: cefTRIAXone SODIUM 1 GM VIAL ONE (22:57)
[2020-06-02] MEDS ORDERED: PROM25SU33 RC (23:08)
[2020-06-02] MEDS ORDERED: LIDO:MAALOX 1:1 20 ML SINGLE DOSE. PO ONE (23:30)
[2020-06-02 23:43] VITALS: BP 129/75
== END 2020-06-03 00:05 | disposition home or self-care (01) ==
LOC: ER 21:27
DX: N30.00 Acute cystitis without hematuria (principal); K21.9 Gastro-esophageal reflux disease without esophagitis; G43.909 Migraine, unspecified, not intractable, without status migrainosus; F41.9 Anxiety disorder, unspecified; J45.909 Unspecified asthma, uncomplicated; E11.9 Type 2 diabetes mellitus without complications; M79.7 Fibromyalgia; E03.9 Hypothyroidism, unspecified; Z20.822 Contact with and (suspected) exposure to COVID-19; Z90.49 Acquired absence of other specified parts of digestive tract; Z98.890 Other specified postprocedural states; Z88.5 Allergy status to narcotic agent; Z88.8 Allergy status to other drugs, medicaments and biological substances
CPT/HCPCS: 81001; 81025; 87086; 96361; 96365; 96375; 99284; C9803; J0696; J1100; J1200; J1885; J2405; J3490; J7030; U0003; U0005

== ENCOUNTER 2020-08-08 16:01 | Emergency (ER) | payer OTHER ==
[~2020-08-08] VITALS: Ht 167.6 cm; Wt 120.5 kg
[~2020-08-08 16:01] MED LIST changes: +BUTA1TAB23 PO; +CEPH500T PO; +PROM25SU33 RC
[2020-08-08] MEDS ORDERED: ONDANSETRON ODT 4 MG TAB.RAPDIS ONE (16:11)
[2020-08-08] MEDS ORDERED: ONDANSETRON ODT 4 MG TAB.RAPDIS PO ONE (16:15)
[2020-08-08] MEDS ORDERED: IV NORMAL SALINE 1,000ML 1,000 ML IV ONE (16:15)
[2020-08-08] MEDS ORDERED: KETOROLAC 30 MG/ML VIAL. IVP ONE (16:30)
[2020-08-08] MEDS ORDERED: DEXAMETHASONE SOD PHOS 10 MG/ML VIAL. IVP ONE (16:30)
[2020-08-08] MEDS ORDERED: diphenhydrAMINE 50 MG/ML VIAL IVP ONE (16:30)
--- NOTE | 2020-08-08 16:32 | PHYS DOC ---
Past History Past Medical History: Anxiety, Asthma, Bipolar, Diabetes, Fibromyalgia, GERD, Hypothyroid, Migraines Additional Past Medical Histor: aspiration D/T reflux, Hashimotos Past Surgical History: Cholecystectomy, , Tonsillectomy Additional Past Surgical Histo: nasal surgery-bone spur, knee surgery Smoking: Non-smoker Alcohol Use: None Drug Use: None General Adult EDM: Chief Complaint: MULTIPLE COMPLAINTS HPI: HPI: 54-year-old female presents with cough. Patient has had cough, congestion, and general ill feeling for the last 4 days. She has a history of aspiration pneumonia and is concerned about pneumonia. She has multiple medication allergies and adverse reactions. She tells me that she has severe GERD. In addition to her cough, she epigastric abdominal pain. This is a mild to moderate pain that is crampy. She has not had a fever at home. Review of Systems: Review of Systems: Constitutional: Denies fever or chills Eyes: Denies change in visual acuity HENT: Denies nasal congestion or sore throat Respiratory: Cough with shortness of breath Cardiovascular: Denies chest pain or edema GI: Epigastric abdominal pain, nausea, vomiting. Denies bloody stools or diarrhea : Denies dysuria Musculoskeletal: Denies back pain or joint pain Integument: Denies rash Neurologic: Headache. Denies focal weakness or sensory changes Endocrine: Denies polyuria or polydipsia Lymphatic: Denies swollen glands Psychiatric: Denies depression or anxiety Current Medications: Current Meds: Current Medications Medications (Trade) Dose Ordered Sig/[facility] Start Time Stop Time Status Last Admin Dose Admin Ondansetron HCl (Zofran Odt) 4 mg 1X ONCE 08/08/20 16:15 08/08/20 16:17 DC 08/08/20 16:19 4 MG Sodium Chloride 1,000 ml @ 1,000 mls/hr 1X ONCE 08/08/20 16:15 08/08/20 17:14 Allergies: Allergies: Allergies Coded Allergies Type Severity Reaction Last Updated Verified codeine Allergy Intermediate 06/02/20 Yes haloperidol Allergy Intermediate 06/02/20 Yes metoclopramide Allergy Intermediate 06/02/20 Yes prochlorperazine Allergy Intermediate 06/02/20 Yes Physical Exam: PE: Constitutional: Well developed, well nourished, no acute distress, non-toxic appearance. [] HENT: Normocephalic, atraumatic, bilateral external ears normal, oropharynx moist, no oral exudates, nose normal. [] Eyes: PERRLA, EOMI, conjunctiva normal, no discharge. [] Neck: Normal range of motion, no tenderness, supple, no stridor. [] Cardiovascular: Heart rate regular rhythm, no murmur [] Lungs & Thorax: Cough. Bilateral breath sounds clear to auscultation [] Abdomen: Bowel sounds normal, soft, mild epigastric tenderness, no masses, no pulsatile masses. [] Skin: Warm, dry, no erythema, no rash. [] Back: No tenderness, no CVA tenderness. [] Extremities: No tenderness, no cyanosis, no clubbing, ROM intact, no edema. [] Neurologic: Alert and oriented X 3, normal motor function, normal sensory function, no focal deficits noted. [] Psychologic: Affect normal, judgement normal, mood normal. [] EKG: EKG: [] Radiology/Procedures: Radiology/Procedures: [] Impressions: Exam Date: 08/08/2020 5:15 PM XR CHEST 1V Indication: Reason: cough, SOB / Spl. Instructions: / History: Comparison: May 06, 2020 FINDINGS/ IMPRESSION: The cardiac silhouette is borderline enlarged without congestion. There is no focal consolidation, pleural effusion or pneumothorax. The visualized osseous structures are intact. Electronically signed by: Rudy Diez MD (08/08/2020 5:23 PM) [facility] DICTATED AND SIGNED BY: RUDY DIEZ MD DATE: 08/08/20 1722 CC: RENEE MOYA DO; VIKY JAUREGUI DO ~MTH0 0 Heart Score: C/O Chest Pain: N/A Risk Factors: Risk Factors: DM, Current or recent (<one month) smoker, HTN, HLP, family history of CAD, obesity. Risk Scores: Score 0 - 3: 2.5% MACE over next 6 weeks - Discharge Home Score 4 - 6: 20.3% MACE over next 6 weeks - Admit for Clinical Observation Score 7 - 10: 72.7% MACE over next 6 weeks - Early Invasive Strategies Course & Med Decision Making: Course & Med Decision Making Pertinent Labs and Imaging studies reviewed. (See chart for details) The patient's chest x-ray is negative for acute findings. I have given her Zofran, 1 L normal saline, Phenergan suppository, 30 mg of Toradol IV. Her labs are unremarkable. The patient is feeling a bit better. She has some facial discomfort over her sinuses. I will treat her for sinus infection with azithromycin. She prefers this medication versus Augmentin. She is stable for discharge at this time. [] Dragon Disclaimer: Dragon Disclaimer: This electronic medical record was generated, in whole or in part, using a voice recognition dictation system. Departure Departure: Impression: Primary Impression: Headache Additional Impression: Sinus infection Disposition: HOME / SELF CARE / HOMELESS Condition: IMPROVED Referrals: VIKY JAUREGUI DO (PCP) Patient Instructions: Migraine Headache, Rawq-[id number]-Ztdb, Sinusitis, Nkaq-wj-[facility] Script[facility] Azithromycin (AZITHROMYCIN TABLET) 250 Mg Tablet 250 MG PO DAILY for ANTI-BIOTIC for 4 Days, #4 TAB 0 Refills Prov: RENEE MOYA DO 08/08/20 RENEE MOYA DO Aug 08, 2020 16:32
[2020-08-08] MEDS ORDERED: PROMETHAZINE 25 MG SUPP.RECT. PR ONE (16:45)
[2020-08-08 17:11] LABS: BASO # 0.1 x10^3/uL (0.0-0.2); BASO % 1 % (0-3); EOS # 0.1 x10^3/uL (0.0-0.7); EOS % 1 % (0-3); HEMATOCRIT 36.4 % (36.0-47.0); HEMOGLOBIN 12.5 g/dL (12.0-15.5); LYMPH # 0.9 x10^3/uL (1.0-4.8); LYMPH % 10 % (24-48); MEAN CORPUSCULAR HEMOGLOBIN 28 pg (25-35); MEAN CORPUSCULAR HGB CONC 34 g/dL (31-37); MEAN CORPUSCULAR VOLUME 82 fL (79-100); MONO # 0.4 x10^3/uL (0.0-1.1); MONO % 4 % (0-9); NEUT # 7.9 x10^3uL (1.8-7.7); NEUT % 84 % (31-73); PLATELET COUNT 264 x10^3/uL (140-400); RED BLOOD COUNT 4.45 x10^6/uL (3.50-5.40); RED CELL DISTRIBUTION WIDTH 14.2 % (11.5-14.5); WHITE BLOOD COUNT 9.3 x10^3/uL (4.0-11.0)
[2020-08-08 17:17] LABS: CALCIUM 8.6 mg/dL (8.5-10.1); CREATININE 0.8 mg/dL (0.6-1.0); GFR 74.7; POTASSIUM 3.6 mmol/L (3.5-5.1)
[2020-08-08 17:22] LABS: ALBUMIN 3.6 g/dL (3.4-5.0); ALBUMIN/GLOBULIN RATIO 0.9 (1.0-1.7); TOTAL BILIRUBIN 0.4 mg/dL (0.2-1.0); TOTAL PROTEIN 7.5 g/dL (6.4-8.2)
--- NOTE | 2020-08-08 17:25 | RAD ---
Exam Date: 08/08/2020 5:15 PM XR CHEST 1V Indication: Reason: cough, SOB / Spl. Instructions: / History: Comparison: May 06, 2020 FINDINGS/ IMPRESSION: The cardiac silhouette is borderline enlarged without congestion. There is no focal consolidation, pleural effusion or pneumothorax. The visualized osseous structures are intact. Electronically signed by: Dima Diez MD (08/08/2020 5:23 PM) [facility]
[2020-08-08] MEDS ORDERED: MORPHINE SULFATE 4 MG/ML DISP.SYRIN. IV ONE (18:00)
[2020-08-08 18:07] LABS: BILIRUBIN,URINE SMALL (NEG); CLARITY,URINE CLOUDY; COLOR,URINE YELLOW; GLUCOSE,URINE NEG (NEG); NITRITE,URINE NEG (NEG); UROBILINOGEN,URINE 0.2 mg/dL (0.2 mg/dL)
[2020-08-08 18:10] LABS: AMORPHOUS SEDIMENT,UR PRESENT /HPF; BACTERIA,URINE 0 /HPF (0-FEW); RBC,URINE 0 /HPF (0-2); SQUAMOUS EPITHELIAL CELL,UR FEW /LPF
[2020-08-08 18:11] LABS: WBC,URINE OCC /HPF (0-4)
[2020-08-08] MEDS ORDERED: AZIT250T6 PO (18:26)
[2020-08-08] MEDS ORDERED: AZITHROMYCIN 250 MG TABLET. PO ONE (18:30)
[2020-08-08 18:50] VITALS: BP 102/53
== END 2020-08-08 19:00 | disposition home or self-care (01) ==
LOC: ER 16:01
DX: J32.9 Chronic sinusitis, unspecified (principal); G43.909 Migraine, unspecified, not intractable, without status migrainosus; R10.13 Epigastric pain; R11.2 Nausea with vomiting, unspecified; F41.9 Anxiety disorder, unspecified; J45.909 Unspecified asthma, uncomplicated; F31.9 Bipolar disorder, unspecified; E11.9 Type 2 diabetes mellitus without complications; M79.7 Fibromyalgia; K21.9 Gastro-esophageal reflux disease without esophagitis; E03.9 Hypothyroidism, unspecified; Z90.49 Acquired absence of other specified parts of digestive tract; Z98.890 Other specified postprocedural states; Z88.5 Allergy status to narcotic agent; Z88.8 Allergy status to other drugs, medicaments and biological substances
CPT/HCPCS: 36415; 71045; 80053; 81001; 83690; 85025; 96361; 96374; 96375; 99284; J1100; J1200; J1885; J2270; J7030; Q0162

== ENCOUNTER 2021-01-09 08:18 | Emergency (ER) | payer OTHER ==
[~2021-01-09] VITALS: Ht 167.6 cm; Wt 122.0 kg
[~2021-01-09 08:18] MED LIST changes: +AZIT250T6 PO
--- NOTE | 2021-01-09 08:33 | PHYS DOC ---
Past History Past Medical History: Anxiety, Asthma, Bipolar, COPD, Diabetes, Fibromyalgia, GERD, Hypothyroid, Migraines Additional Past Medical Histor: aspiration D/T reflux, Hashimotos Past Surgical History: Cholecystectomy, , Tonsillectomy Additional Past Surgical Histo: nasal surgery-bone spur, knee surgery Smoking: Non-smoker Alcohol Use: None Drug Use: None Adult General Chief Complaint Chief Complaint: HEADACHE HPI HPI Patient is a 55-year-old female presenting for headache. Reports she is suffered URI symptoms for past 48 hours without any known inciting event, trauma, ingestion, recent sick contact or travel. She has taken home Zofran and Tylenol with last use being 2 AM this morning without relief in symptoms. Nothing known makes better or worse. Patient reports pain is focal to head, no neck involvement. She reports she is highly anxious and has bipolar disorder which she feels might be contributing to her presenting symptoms. She is fully vaccinated against COVID-19 Review of Systems Review of Systems Fourteen body systems of review of systems have been reviewed. See HPI for pertinent positives and negative responses, other jay all other systems are negative, non-pertinent or non-contributory Allergies Allergies Allergies Coded Allergies Type Severity Reaction Last Updated Verified codeine Allergy Intermediate 06/02/20 Yes haloperidol Allergy Intermediate 06/02/20 Yes metoclopramide Allergy Intermediate 06/02/20 Yes prochlorperazine Allergy Intermediate 06/02/20 Yes Physical Exam Physical Exam General: Appears age-appropriate but anxious. Nontoxic in appearance Skin: Warm, dry. Normal for ethnicity. HEENT: Atraumatic. PERRLA. External nose unremarkable. Nasal turbinates boggy b/l. Moist mucous membranes. Uvula midline. Maintaining secretions. No phonation changes. Neck: Trachea midline. Normal ROM. No stridor. No nuchal rigidity or meningeal signs Respiratory: Normal WOB. CTAB w/o w/r/r. No tachypnea. Cardiovascular: Regular rate and rhythm. Normal peripheral perfusion. Abdomen: Soft. Non tender. No distension. Back: Normal ROM. Musculoskeletal: No swelling or deformity. Neuro: Alert and oriented x 4. MAEE. Lymph: No cervical LAD. Psych: Anxious affect and mood, pressured speech and tangential at times Current Patient Data Vital Signs Vital Signs Date Time Temp Pulse Resp B/P (MAP) Pulse Ox O2 Delivery O2 Flow Rate FiO2 01/09/21 08:30 103.0 104 20 142/63 (89) 95 Room Air Vital Signs Date Time Temp Pulse Resp B/P (MAP) Pulse Ox O2 Delivery O2 Flow Rate FiO2 01/09/21 11:00 81 18 106/48 (67) 97 Room Air 01/09/21 10:09 100.1 Lab Results Current Medications Medications (Trade) Dose Ordered Sig/Tati Route PRN Reason Start Time Stop Time Status Last Admin Dose Admin Sodium Chloride 1,000 ml @ 1,000 mls/hr 1X ONCE IV 01/09/21 08:45 01/09/21 09:44 DC 01/09/21 08:57 Ketorolac Tromethamine (Toradol 15mg Vial) 15 mg 1X ONCE IVP 01/09/21 08:45 01/09/21 08:58 DC 01/09/21 08:57 Lorazepam (Ativan Inj) 0.5 mg 1X ONCE IVP 01/09/21 08:45 01/09/21 08:58 DC 01/09/21 08:58 Ondansetron HCl (Zofran) 4 mg 1X ONCE IVP 01/09/21 08:45 01/09/21 08:58 DC 01/09/21 08:58 Acetaminophen (Tylenol) 1,000 mg 1X ONCE PO 01/09/21 09:45 01/09/21 09:46 DC 01/09/21 09:52 Dexamethasone Sodium Phosphate (Decadron) 10 mg 1X ONCE IVP 01/09/21 10:15 01/09/21 10:16 DC 01/09/21 10:19 Diphenhydramine HCl (Benadryl) 25 mg 1X ONCE IVP 01/09/21 10:15 01/09/21 10:16 DC 01/09/21 10:19 EKG EKG EKG ordered and interpreted by myself 0901 hrs. as sinus rhythm at 95 bpm, unremarkable intervals, no axis deviation, nonspecific T wave abnormalities in leads III, aVF, V2 and V3, no STEMI Radiology/Procedures Radiology/Procedures INDICATION: Reason: NAUSEA, VOMITING, FEVER / Spl. Instructions: / History: COMPARISON: August 08, 2020 FINDINGS: Single view of chest obtained. Cardiomediastinal silhouette is similar to prior exam. Left lung base opacity is again seen. No definite consolidation elsewhere in the lungs. IMPRESSION: * Left lung base is obscured secondary to overlying soft tissues and cardiac silhouette without a definite region of focal consolidation elsewhere in the lungs. Electronically signed by: Gavin Sandoval MD (01/09/2021 9:02 AM) [id number] Heart Score C/O Chest Pain: No HEART Score for Chest Pain: HEART Score for Chest Pain Response (Comments) Value History Slighlty/Non-Suspicious 0 ECG Normal 0 Age >45 - < 65 1 Risk Factors 1 or 2 Risk Factors 1 Troponin < Normal Limit 0 Total 2 Risk Factors: Risk Factors: DM, Current or recent (<one month) smoker, HTN, HLP, family history of CAD, obesity. Risk Scores: Risk Factors: DM, Current or recent (<one month) smoker, HTN, HLP, family history of CAD, obesity. Course & Med Decision Making Course & Med Decision Making ABCs unremarkable HPI physical exam and comprehensive ER work-up nonconcerning for any emergent or surgical issues Patient had a fever likely due to URI symptoms and absence of any other concerning symptoms or obvious ER findings based on work-up. No urinary symptoms so UA was deferred Fever and subsequent headache improved with provided ER intervention. Supportive care practices discussed with close outpatient follow-up advised Willy Disclaimer Dragamanda Disclaimer This electronic medical record was generated, in whole or in part, using a voice recognition dictation system. Departure Departure: Impression: Primary Impression: Fever Additional Impressions: Person under investigation for COVID-19 Viral syndrome Disposition: HOME / SELF CARE / HOMELESS Condition: STABLE Referrals: VIKY JAUREGUI DO (PCP) Patient Instructions: Fever Additional Instructions: You were seen for headache, fever, body aches, and possible infection with COVID-19. Your physical exam was reassuring. Your chest x-ray was normal. We tested you for COVID-19 but this test does not come back for 1 to 2 days. In the meantime you need to quarantine yourself at home away from all other ind ividuals, especially those who are elderly or have any other chronic health issues or an immunocompromised status. You should return to the ED if you develop worsening cough, shortness of breath, chest pain, or any other new or concerning symptoms. Alternate Tylenol and ibuprofen as needed for body aches and pain. If your test does come back positive you need to quarantine yourself for 10 days until symptom-free. You should make sure to drink plenty of fluids and get plenty of rest. Problem Qualifiers VINI MENDIOLA DO Jan 09, 2021 08:33
[2021-01-09] MEDS ORDERED: KETOROLAC 15 MG/ML VIAL. IVP ONE (08:45)
[2021-01-09] MEDS ORDERED: ONDANSETRON PF 4 MG/2 ML VIAL. IVP ONE (08:45)
[2021-01-09] MEDS ORDERED: IV NORMAL SALINE 1,000ML 1,000 ML IV ONE (08:45)
--- NOTE | 2021-01-09 09:05 | RAD ---
INDICATION: Reason: NAUSEA, VOMITING, FEVER / Spl. Instructions: / History: COMPARISON: August 08, 2020 FINDINGS: Single view of chest obtained. Cardiomediastinal silhouette is similar to prior exam. Left lung base opacity is again seen. No definite consolidation elsewhere in the lungs. IMPRESSION: * Left lung base is obscured secondary to overlying soft tissues and cardiac silhouette without a de finite region of focal consolidation elsewhere in the lungs. Electronically signed by: Gavin Sandoval MD (01/09/2021 9:02 AM) [id number]
[2021-01-09 09:22] LABS: BASO % 0 % (0-3); EOS % 0 % (0-3); HEMATOCRIT 36.5 % (36.0-47.0); HEMOGLOBIN 12.3 g/dL (12.0-15.5); LYMPH # 1.1 x10^3/uL (1.0-4.8); LYMPH % 9 % (24-48); MEAN CORPUSCULAR HEMOGLOBIN 28 pg (25-35); MEAN CORPUSCULAR HGB CONC 34 g/dL (31-37); MEAN CORPUSCULAR VOLUME 83 fL (79-100); MONO # 1.1 x10^3/uL (0.0-1.1); MONO % 8 % (0-9); NEUT % 83 % (31-73); PLATELET COUNT 249 x10^3/uL (140-400); RED BLOOD COUNT 4.38 x10^6/uL (3.50-5.40); RED CELL DISTRIBUTION WIDTH 13.4 % (11.5-14.5); WHITE BLOOD COUNT 13.2 x10^3/uL (4.0-11.0)
[2021-01-09 09:28] LABS: CALCIUM 8.7 mg/dL (8.5-10.1); GFR 57.6; POTASSIUM 4.1 mmol/L (3.5-5.1)
[2021-01-09 09:33] LABS: ALBUMIN 3.6 g/dL (3.4-5.0); ALBUMIN/GLOBULIN RATIO 0.9 (1.0-1.7); TOTAL BILIRUBIN 0.5 mg/dL (0.2-1.0); TOTAL PROTEIN 7.8 g/dL (6.4-8.2)
[2021-01-09] MEDS ORDERED: ACETAMINOPHEN 500 MG TABLET PO ONE (09:45)
[2021-01-09] MEDS ORDERED: DEXAMETHASONE SOD PHOS 10 MG/ML VIAL. IVP ONE (10:15)
[2021-01-09] MEDS ORDERED: diphenhydrAMINE 50 MG/ML VIAL IVP ONE (10:15)
--- NOTE | 2021-01-09 10:31 | EKG ---
[address] [address] Test Date: 2021-01-09 Test Time: 08:53:23 Pat Name: JUAN QUIROS Department: Room: Gender: F Controls Project Engineer: : 1965 Requested By: VINI MENDIOLA Order Number: [id number] Reading MD: Kirk Cortés Measurements Intervals [place] Rate: 95 P: 49 TN: 150 QRS: 21 QRSD: 82 T: 21 QT: 308 QTc: 390 Interpretive Statements SINUS RHYTHM NON SPECIFIC ST-T WAVE CHANGES RI6.02 Compared to ECG 05/06/2020 16:03:52 No significant changes Electronically Signed On 01-10-2021 9:05:22 [employer] SEAM[employer] by Kirk Cortés
[2021-01-09 11:00] VITALS: BP 106/48
== END 2021-01-09 11:16 | disposition home or self-care (01) ==
LOC: ER 08:18
DX: B34.9 Viral infection, unspecified (principal); F31.9 Bipolar disorder, unspecified; F41.9 Anxiety disorder, unspecified; J44.9 Chronic obstructive pulmonary disease, unspecified; E11.9 Type 2 diabetes mellitus without complications; M79.7 Fibromyalgia; K21.9 Gastro-esophageal reflux disease without esophagitis; E03.9 Hypothyroidism, unspecified; G43.909 Migraine, unspecified, not intractable, without status migrainosus; Z20.822 Contact with and (suspected) exposure to COVID-19; Z88.5 Allergy status to narcotic agent; Z88.8 Allergy status to other drugs, medicaments and biological substances
CPT/HCPCS: 71045; 80053; 84484; 85025; 93005; 96361; 96374; 96375; 99285; C9803; J1100; J1200; J1885; J2060; J2405; J7030; U0003

== ENCOUNTER 2021-01-11 02:55 | Inpatient (IN) | payer OTHER ==
[~2021-01-11] VITALS: Ht 320 cm; Wt 124.6 kg
[2021-01-11] MEDS ORDERED: IV RINGERS SOLUTION,LACTATED 1,000 ML IV ONE ×2 (03:15→03:30)
--- NOTE | 2021-01-11 03:19 | PHYS DOC ---
Past History Past Medical History: Anxiety, Asthma, Bipolar, COPD, Diabetes, Fibromyalgia, GERD, Hypothyroid, Migraines Additional Past Medical Histor: sleep apnea, Hashimotos Past Surgical History: Cholecystectomy, , Tonsillectomy Additional Past Surgical Histo: nasal surgery-bone spur, knee surgery Smoking: Non-smoker Alcohol Use: Occasionally Drug Use: None Adult General Chief Complaint Chief Complaint: NAUSEA/VOMITING/DIARRHEA HPI HPI Patient is a 55-year-old female with multiple medical problems who presents to the emergency department for the second time in the last 3 days for fevers at home to 103, fatigue, body aches, cough and abdominal cramping. Denies recent traumas, chest pain, nausea, vomiting, diarrhea, dysuria, hematuria or blood in the stool. Denies any known ill contacts. Review of Systems Review of Systems Review of systems otherwise unremarkable except noted in HPI Current Medications Current Medications Current Medications Medications (Trade) Dose Ordered Sig/Tati Start Time Stop Time Status Last Admin Dose Admin Acetaminophen (Tylenol) 1,000 mg 1X ONCE 01/11/21 03:30 01/11/21 03:31 01/11/21 03:14 1,000 MG Ibuprofen (Motrin) 600 mg 1X ONCE 01/11/21 03:30 01/11/21 03:31 01/11/21 03:14 600 MG Lactated Ringer's 1,000 ml @ 1,000 mls/hr 1X ONCE 01/11/21 03:15 01/11/21 04:14 UNV 01/11/21 03:18 1,000 MLS/HR Ondansetron HCl (Zofran) 4 mg 1X ONCE 01/11/21 03:30 01/11/21 03:31 01/11/21 03:13 4 MG Allergies Allergies Allergies Coded Allergies Type Severity Reaction Last Updated Verified codeine Allergy Intermediate 06/02/20 Yes haloperidol Allergy Intermediate 06/02/20 Yes metoclopramide Allergy Intermediate 06/02/20 Yes prochlorperazine Allergy Intermediate 06/02/20 Yes Physical Exam Physical Exam Constitutional: Well developed, well nourished, no acute distress, non-toxic appearance. [] HENT: Normocephalic, atraumatic, bilateral external ears normal, oropharynx moist, no oral exudates, nose normal. [] Eyes: conjunctiva normal, no discharge. [] Neck: Normal range of motion, no tenderness, supple, no stridor. [] Cardiovascular: Sinus tachycardia Lungs & Thorax: Bilateral, global, scant rhonchi Abdomen: soft, no tenderness, no masses, no pulsatile masses. [] Skin: Warm, dry, no erythema, no rash. [] Back: no CVA tenderness. [] Extremities: No tenderness, no cyanosis, no clubbing, ROM intact, no edema. [] Neurologic: Alert and oriented X 3, no focal deficits noted. [] Psychologic: Affect normal, judgement normal, mood normal. [] EKG EKG [] Radiology/Procedures Radiology/Procedures []T CHEST+ABD+PELVIS W Clinical Indication: Reason: sepsis w/u, Comparison: None. Technique: Helical CT imaging of the chest, abdomen and pelvis is performed after 75 cc of Omnipaque 300 IV contrast. Oral contrast not administered. Findings: Thyroid is symmetric. Great vessels are normal caliber. There is no adenopathy in the chest. Cardiac size is normal, no pericardial effusion. There is no pleural abnormality. The central airways are patent. The lungs are clear. Cholecystectomy. Liver, spleen, pancreas, adrenal glands, abdominal aorta, and kidneys are normal. The stomach is unremarkable. The appendix is normal. No dilated small bowel. Scattered stool in the colon. No colon wall thickening is identified. There is no abdominal adenopathy or free fluid. There is a probable 2.7 cm right posterior fibroid near the fundus. Urinary bladder is nearly completely decompressed accentuating the wall thickness and limiting evaluation. No pelvic free fluid is seen. No acute bone abnormality. The thoracolumbar spine alignment is maintained. IMPRESSION: No acute abnormality of the chest, abdomen, or pelvis. Electronically signed by: Romero Paz MD (01/11/2021 4:39 AM) [facility] Heart Score C/O Chest Pain: No Risk Factors: Risk Factors: DM, Current or recent (<one month) smoker, HTN, HLP, family history of CAD, obesity. Risk Scores: Risk Factors: DM, Current or recent (<one month) smoker, HTN, HLP, family history of CAD, obesity. Course & Med Decision Making Course & Med Decision Making Patient is a 55-year-old female with 3 days of fever, congestion abdominal cramping Vital signs notable for tachycardia, and fever. Physical exam noted above. Patient placed on the monitor with IV access established and IV fluid begun. Given Tylenol and ibuprofen. Laboratory analysis notable for new JORGITO and urinary tract infection. Given that and CT findings, patient with probable pyelonephritis. Started on antibiotics in the emergency department and continued on IV fluid resuscitation. Given nausea medicine. Discussed all findings with family and recommended admission to [facility] for continued evaluation and treatment. Family grateful, verbalized understanding and agreed with plan of admission. [] Dragon Disclaimer Dragon Disclaimer This electronic medical record was generated, in whole or in part, using a voice recognition dictation system. Departure Departure: Impression: Primary Impression: Pyelonephritis Additional Impression: JORGITO (acute kidney injury) Disposition: ADMITTED INPATIENT Admitting Physician: Jose Gomez Condition: STABLE Referrals: VIKY JAUREGUI DO (PCP) Problem Qualifiers SPENCER NASCIMENTO MD Jan 11, 2021 03:19
[2021-01-11] MEDS ORDERED: IBUPROFEN 600 MG TABLET. PO ONE (03:30)
[2021-01-11] MEDS ORDERED: ONDANSETRON PF 4 MG/2 ML VIAL. IVP ONE ×2 (03:30→05:30)
[2021-01-11] MEDS ORDERED: ACETAMINOPHEN 500 MG TABLET PO ONE (03:30)
[2021-01-11] MEDS ORDERED: CONTRAST GIVEN. MC PRN (03:45)
[2021-01-11 03:56] LABS: BASO % 0 % (0-3); EOS % 0 % (0-3); HEMOGLOBIN 11.3 g/dL (12.0-15.5); LYMPH # 0.9 x10^3/uL (1.0-4.8); LYMPH % 10 % (24-48); MEAN CORPUSCULAR HEMOGLOBIN 28 pg (25-35); MEAN CORPUSCULAR HGB CONC 33 g/dL (31-37); MEAN CORPUSCULAR VOLUME 84 fL (79-100); MONO # 0.3 x10^3/uL (0.0-1.1); MONO % 4 % (0-9); NEUT # 7.9 x10^3uL (1.8-7.7); NEUT % 86 % (31-73); PLATELET COUNT 259 x10^3/uL (140-400); RED BLOOD COUNT 4.03 x10^6/uL (3.50-5.40); RED CELL DISTRIBUTION WIDTH 13.3 % (11.5-14.5); WHITE BLOOD COUNT 9.1 x10^3/uL (4.0-11.0)
--- NOTE | 2021-01-11 03:57 | EKG ---
[address] [address] Test Date: 2021-01-11 Test Time: 03:47:03 Pat Name: JUAN QUIROS Department: Room: Gender: F Forestry Contractor: CRISTINA : 1965 Requested By: SPENCER NASCIMENTO Order Number: [id number] Reading MD: Zackery Guevara MD Measurements Intervals [place] Rate: 97 P: [place]: QRS: 28 QRSD: 76 T: 18 QT: 352 QTc: 451 Interpretive Statements SR NON-SPECIFIC ST/T CHANGES Electronically Signed On 01-11-2021 8:59:37 [employer] OPERATOR by Zackery Guevara MD
[2021-01-11] MEDS ORDERED: IOHEXOL 300 MG/ML 75 ML VIAL. IV ONE (04:00)
[2021-01-11 04:11] LABS: CALCIUM 8.3 mg/dL (8.5-10.1); CREATININE 1.4 mg/dL (0.6-1.0); POTASSIUM 3.5 mmol/L (3.5-5.1)
[2021-01-11 04:14] LABS: ALBUMIN 3.2 g/dL (3.4-5.0); ALBUMIN/GLOBULIN RATIO 0.9 (1.0-1.7); TOTAL BILIRUBIN 0.3 mg/dL (0.2-1.0); TOTAL PROTEIN 6.7 g/dL (6.4-8.2)
[2021-01-11 04:18] LABS: INFLUENZA A PATIENT NEGATIVE (NEGATIVE); INFLUENZA B PATIENT NEGATIVE (NEGATIVE)
[2021-01-11 04:29] LABS: BILIRUBIN,URINE NEG (NEG); CLARITY,URINE CLEAR; COLOR,URINE YELLOW; GLUCOSE,URINE NEG (NEG); NITRITE,URINE NEG (NEG)
[2021-01-11 04:30] LABS: BACTERIA,URINE MOD /HPF (0-FEW); GRANULAR CASTS,URINE OCC /HPF; SQUAMOUS EPITHELIAL CELL,UR FEW /LPF; WBC,URINE 20-40 /HPF (0-4)
--- NOTE | 2021-01-11 04:41 | RAD ---
PQRS Compliance Statement: One or more of the following individualized dose reduction techniques were utilized for this examinat ion: 1. Automated exposure control 2. Adjustment of the mA and/or kV according to patient size 3. Use of iterative reconstruction technique CT CHEST+ABD+PELVIS W Clinical Indication: Reason: sepsis w/u, Comparison: None. Technique: Helical CT imaging of the chest, abdomen and pelvis is performed after 75 cc of Omnipaque 300 IV contrast. Oral contrast not administered. Findings: Thyroid is symmetric. Great vessels are normal caliber. There is no adenopathy in the chest. Cardiac size is normal, no pericardial effusion. There is no pleural abnormality. The central airways are pat ent. The lungs are clear. Cholecystectomy. Liver, spleen, pancreas, adrenal glands, abdominal aorta, and kidneys are normal. The stomach is unremarkable. The appendix is normal. No dilated small bowel. Scattered stool in the c olon. No colon wall thickening is identified. There is no abdominal adenopathy or free fluid. There is a probable 2.7 cm right posterior fibroid near the fundus. Urinary bladder is nearly complet jose l decompressed accentuating the wall thickness and limiting evaluation. No pelvic free fluid is see n. No acute bone abnormality. The thoracolumbar spine alignment is maintained. IMPRESSION: No acute abnormality of the chest, abdomen, or pelvis. Electronically signed by: Romero Pza MD (01/11/2021 4:39 AM) [facility]
[2021-01-11] MEDS ORDERED: cefTRIAXone SODIUM 1 GM VIAL ONE (04:58)
[2021-01-11] MEDS ORDERED: IV NORMAL SALINE 50ML 50 ML ONE (04:58)
[2021-01-11] MEDS ORDERED: METOCLOPRAMIDE HCL 10 MG/2 ML VIAL. IVP ONE (05:30)
[2021-01-11] MEDS ORDERED: MORPHINE SULFATE 4 MG/ML DISP.SYRIN. ONE (05:39)
[2021-01-11] MEDS ORDERED: PROMETHAZINE 25 MG SUPP.RECT. ONE (05:39)
[2021-01-11] MEDS ORDERED: MORPHINE SULFATE 4 MG/ML DISP.SYRIN. IV ONE (06:00)
[2021-01-11] MEDS ORDERED: PROMETHAZINE 25 MG SUPP.RECT. PR ONE (06:00)
[2021-01-11 07:41] VITALS: BP 89/58
--- NOTE | 2021-01-11 09:05 | NUR ---
PT ARRIVED TO ROOM 117 VIA EMS GURNEY. PT CAME WITH A LIST OF HER MEDICATIONS AND MEDICAL CONDITIONS (PUT IN CHART). PT NOT CURRENTLY VOMITING BUT EXPERIENCING NAUSEA.
[2021-01-11] MEDS ORDERED: ALBU0.63 NEB (09:26)
[2021-01-11] MEDS ORDERED: ATOR10TA60 PO (09:26)
[2021-01-11] MEDS ORDERED: ERGO2000 PO (09:26)
[2021-01-11] MEDS ORDERED: MECO10005 IM (09:26)
[2021-01-11] MEDS ORDERED: FLUT1DIS3 IH (09:26)
[2021-01-11] MEDS ORDERED: OMEP40CA7 PO (09:26)
--- NOTE | 2021-01-11 10:32 | NUR ---
SPOKE WITH PT . HE WAS WANTING AN UPDATE. HE WAS TOLD THAT DR. TENORIO WILL BE HERE IN THE EARLY AFTERNOON TO ROUND, BUT DR. TENORIO WAS NOTIFIED OF HER ARRIVAL. THIS RN TRIED TO INFORM HIM OF THE CARE PROVIDED IN THE ER AND HE INTERRUPTED AND SAID HE WAS IN THE ER AND KNOWS WHAT WAS HAPPENING DOWN THERE. HE STATED HE CANNOT BELIEVE NOTHING HAS BEEN DONE SINCE THEN. HE WAS REMINDED THAT DR. TENORIO IS AWARE OF HER ARRIVAL TO THE FLOOR AND IF PT HAD AN URGENT NEED THAT NEEDED TO BE ADDRESSED, DR. TENORIO WOULD GIVE ORDERS. WAS ADVISED TO CALL BACK LATER IN THE AFTERNOON AFTER DR. TENORIO ROUNDS FOR AN UPDATE.
[2021-01-11] MEDS: IV RINGERS SOLUTION,LACTATED 1,000 ML IV SCH ×2 (12:14→20:42)
[2021-01-11] MEDS: ACETAMINOPHEN 325 MG TABLET PO PRN (14:11)
[2021-01-11 14:23] VITALS: BP 95/63
[2021-01-11] MEDS ORDERED: ALBUTEROL SULFATE 2.5 MG/3 ML NEBU. INH PRN (14:30)
[2021-01-11] MEDS ORDERED: NON FORMULARY ITEM (Albuterol Sulfate (Albuterol Sulfate Neb Soln) 1 VIAL) NEB SCH (14:30)
[2021-01-11] MEDS ORDERED: ALPRAZolam 0.5 MG TABLET PO PRN (14:30)
[2021-01-11] MEDS: ONDANSETRON PF 4 MG/2 ML VIAL. IVP PRN ×2 (15:29→20:19)
--- NOTE | 2021-01-11 15:34 | HP ---
DATE OF SERVICE: 01/11/2021 ADMIT DATE: 01/11/2021 HISTORY OF PRESENT ILLNESS: The patient is a 55-year-old female patient who presented to the Emergency Room for the second time in the last 3 days for fever at home up to 103 degree Fahrenheit, fatigue, body aches, cough and abdominal cramping. She denied any recent trauma or chest pain. She did complain of nausea, but no vomiting. She also complained of headache. She denied any known ill contact. She apparently was extensively investigated in the Emergency Room, has had lab work and imaging studies. Her lab work was significant for normochromic normocytic anemia. Her chemistry also showed that she has mildly impaired kidney function and her blood gases showed that she is somewhat hypoxic, although this is a venous sample. Her urinalysis showed the patient's urine was yellow, clear with a pH of 5.5 with a small amount of protein, negative for glucose, trace of ketones, trace of blood. There are small amount of leukocyte esterase, 1-2 rbc's, and 20-40 wbc's and moderate amount of bacteria. She underwent a CT scan of the chest, abdomen and pelvis which basically showed there is no acute abnormality of the chest, abdomen or pelvis. The thyroid is symmetric. Facies are normal in caliber. There is no adenopathy in the chest. Cardiac size is normal. No pericardial effusion, no pleural abnormalities and central airways are patent. The lungs are clear. She underwent cholecystectomy. Her liver, spleen, pancreas, adrenals, abdominal aorta and kidneys are normal. The stomach is unremarkable. The appendix is normal and no dilated small bowel, scattered stool within the colon. No colon wall thickening is identified. There is no abdominal adenopathy or free fluid. There is a probable 2.7 cm right posterior fibroid near the fundus. Urinary bladder is nearly completely decompressed attenuating the wall thickness and limiting evaluation. No pelvic free fluid is seen. The patient was admitted with pyelonephritis and acute kidney injury. She was started on IV antibiotic and was admitted for further evaluation and treatment. PAST MEDICAL HISTORY: Significant for Geovanny thyroiditis. She has hypothyroidism, bronchial asthma, type 2 diabetes mellitus, gastroesophageal reflux disease, chronic bronchitis and migraine headache. She has had obstructive sleep apnea, fibromyalgia, bipolar disorder, and morbid obesity. PAST SURGICAL HISTORY: Significant for tonsillectomy, , cholecystectomy, sinus surgery and left knee surgery. ALLERGIES: SHE IS ALLERGIC TO CODEINE, HALOPERIDOL, METOCLOPRAMIDE AND PROCHLORPERAZINE. MEDICATIONS: She is currently on the following medication: She is on albuterol sulfate 2 puffs every 6 hours, albuterol sulfate by nebulizer every 4 hours as needed, atorvastatin, calcium 10 mg at bedtime, clonazepam 0.5 mg at bedtime, sertraline 100 mg daily, trazodone 100 mg at bedtime, quetiapine fumarate 50 mg at bedtime, alprazolam 0.5 mg every 6 hours, ____ 10 mg twice a day. She is on Advair Diskus 250/50 one puff once a day, ondansetron 4 mg every 6 hours as needed, omeprazole 40 mg at bedtime, methylcobalamin 1000 mcg tablet once a day, ergocalciferol, vitamin D3 50 mcg once a week. She is on Phenergan suppositories 25 mg rectally as needed for nausea and vomiting. FAMILY HISTORY: She has one brother, younger; and one sister older and has uterine cancer. Father at age of 80 because of lung cancer and COPD. Her mother was killed in a motor vehicle accident. SOCIAL HISTORY: She is , has a son and a daughter. She never smoked, does not drink alcohol. She used to be a medical office manager. PHYSICAL EXAMINATION: GENERAL: On arrival to the Emergency Room, she was somewhat tachypneic, tachycardic and febrile. VITAL SIGNS: Her heart rate was 100, blood pressure is 106/50, temperature was 103.3, respiratory rate 22, and oxygen saturation was 96% on room air. HEAD, EYES, EARS, NOSE, AND THROAT: Normocephalic, atraumatic. NECK: Supple. HEART: Showed normal first and second heart sounds. No gallop or murmur. CHEST: Clear to auscultation. No crepitation or rhonchi. ABDOMEN: Distended, soft, nontender. NEUROLOGIC: She was alert, oriented x3 with no sensory or motor deficit. LABORATORY DATA: On arrival showed a white cell count of 9100, hemoglobin 11, hematocrit 34, MCV 84 and platelet count of 259,000 with normal manual differential showed 86% polymorphs, 10% lymphocytes and 4% monocytes. Her chemistry showed a serum sodium of 139, potassium 3.5, chloride 102, bicarbonate 24, anion gap of 13, BUN 22, creatinine 1.4. Estimated GFR was 39 mL per minute. Her glucose 132. Lactic acid was 0.9, calcium was 8.3. Total bilirubin, AST, ALT, alkaline phosphatase were normal. Her total protein was 6.7, albumin was 3.2 and her urinalysis showed that she has 20-40 wbc's and moderate amount of bacteria. ASSESSMENT AND PLAN: The patient was treated with IV Rocephin and also received IV fluid together with antiemetics, and was admitted with diagnosis of acute pyelonephritis. We will reconcile all her medications. Continue with IV antibiotic and await the result of the urine and blood culture. CORY/CSOTTY/NATHALIE DR: Laly TID: [id number]
[2021-01-11] MEDS ORDERED: KETOROLAC 15 MG/ML VIAL. IVP PRN (15:45)
[2021-01-11] MEDS ORDERED: ALBUTEROL SULFATE 2.5 MG/3 ML NEBU. NEB SCH (16:00)
[2021-01-11] MEDS ORDERED: KETOROLAC 30 MG/ML VIAL. IVP ONE (16:00)
[2021-01-11] MEDS ORDERED: ONDANSETRON ODT 4 MG TAB.RAPDIS PO PRN (16:30)
--- NOTE | 2021-01-11 16:33 | NUR ---
PT STARTED ON LR @ 100. PT REQUESTED A NEW IV SITE BECAUSE EVERYTIME SHE USED HER PHONE IT WOULD CAUSE HER IV PUMP TO BEEP. PRN PAIN MEDS ORDERED FOR A HEADACHE. PT ABLE TO EAT SOFT, NON-ACIDIC FOODS, SUCH PUDDING. PT STATES SHE IS TOTALLY INCONTINENT FROM HER DAUGHTER'S . PT REFUSED BREATHING TX AND WANTS THEM TO BE PRN. THE ADVAIR THAT SHE TAKES DAILY WAS SUBSTITUTED FOR A BREATHING TX, BUT PT REFUSED.
[2021-01-11] MEDS: SUMAtriptan SUCCINATE 50 MG TABLET PO PRN (16:47)
[2021-01-11 19:48] VITALS: BP 110/73
[2021-01-11] MEDS ORDERED: BUDESONIDE 0.5 MG/2 ML NEBU NEB SCH (20:00)
[2021-01-11] MEDS: QUEtiapine 50 MG TABLET. PO SCH (20:41)
[2021-01-11] MEDS: PANTOPRAZOLE 40 MG TABLET. PO SCH (20:41)
[2021-01-11] MEDS: LACTOBACILLUS RHAMNOSUS GG 1 CAPSULE. PO SCH (20:41)
[2021-01-11] MEDS: traZODone 100 MG TABLET. PO SCH (20:41)
[2021-01-11] MEDS: clonazePAM 1 MG TABLET PO SCH (20:42)
[2021-01-11] MEDS ORDERED: NON FORMULARY ITEM (Omeprazole 1 CAP) PO SCH (21:00)
[2021-01-11 23:37] VITALS: BP 134/78
[2021-01-12] MEDS: SUMAtriptan SUCCINATE 50 MG TABLET PO PRN ×2 (00:03→09:00)
[2021-01-12] MEDS: PROMETHAZINE 25 MG SUPP.RECT. PR PRN ×2 (00:04→09:00)
[2021-01-12 05:58] VITALS: BP 109/68
[2021-01-12 06:20] LABS: BASO % 0 % (0-3); EOS % 0 % (0-3); HEMATOCRIT 32.8 % (36.0-47.0); HEMOGLOBIN 10.9 g/dL (12.0-15.5); LYMPH # 0.8 x10^3/uL (1.0-4.8); LYMPH % 10 % (24-48); MEAN CORPUSCULAR HEMOGLOBIN 28 pg (25-35); MEAN CORPUSCULAR HGB CONC 33 g/dL (31-37); MEAN CORPUSCULAR VOLUME 84 fL (79-100); MONO # 0.6 x10^3/uL (0.0-1.1); MONO % 7 % (0-9); NEUT # 7.1 x10^3uL (1.8-7.7); NEUT % 83 % (31-73); PLATELET COUNT 230 x10^3/uL (140-400); RED BLOOD COUNT 3.89 x10^6/uL (3.50-5.40); RED CELL DISTRIBUTION WIDTH 13.6 % (11.5-14.5); WHITE BLOOD COUNT 8.6 x10^3/uL (4.0-11.0)
[2021-01-12 06:23] LABS: CALCIUM 8.4 mg/dL (8.5-10.1); GFR 57.6; POTASSIUM 3.4 mmol/L (3.5-5.1)
[2021-01-12] MEDS: SERTRALINE 100 MG TABLET. PO SCH (07:30)
[2021-01-12] MEDS: LACTOBACILLUS RHAMNOSUS GG 1 CAPSULE. PO SCH ×2 (07:30→20:42)
[2021-01-12] MEDS: ATORVASTATIN CALCIUM 10 MG TABLET. PO SCH (07:32)
[2021-01-12] MEDS: IV RINGERS SOLUTION,LACTATED 1,000 ML IV SCH ×3 (09:00→20:43)
[2021-01-12] MEDS ORDERED: NON FORMULARY ITEM (Omeprazole 20 MG) PO SCH (09:00)
[2021-01-12] MEDS ORDERED: NON FORMULARY ITEM (Fluticasone/Salmeterol (Advair 250-50 Diskus) 1 PUFF) IH SCH (09:00)
[2021-01-12] MEDS: POLYETHYLENE GLYCOL 3350 17 GM PACKET. PO SCH (09:00)
[2021-01-12] MEDS: DEXAMETHASONE SOD PHOS 10 MG/ML VIAL. IV SCH ×2 (09:00→20:43)
--- NOTE | 2021-01-12 09:01 | PN ---
DATE: 01/12/2021 ATTENDING PHYSICIANS: Dr. Gomez and Dr. Marshall. SUBJECTIVE: Headache and generalized weakness. OBJECTIVE FINDINGS: VITAL SIGNS: Blood pressure this morning is 109/68, pulse is 92 and regular. She is afebrile. Oxygen saturation 92% on room air. HEENT: Head is without trauma. Pupils are reactive. Sclerae nonicteric. Oropharynx clear. NECK: Supple, no bruits. LUNGS: Good breath sounds. CARDIOVASCULAR: Showed regular heart tones. ABDOMEN: Soft, obese, protuberant. No organomegaly. Bowel sounds are hypoactive. EXTREMITIES: Show no cyanosis or edema. NEUROLOGIC: Focally intact. Speech is fluent. PERTINENT LABORATORY STUDIES: Her serology was negative for coronavirus and negative for influenza A and B. Hemoglobin was noted. Hemoglobin 11.3 grams, white count 8600. Chemistry panel: Creatinine is 1.0 mg percent, which is improved. No cultures were sent unfortunately from the ED. ASSESSMENT: 1. A 55-year-old female with pyelonephritis, ascending urinary tract infection. 2. History of hypothyroidism. 3. Chronic migraine headache. 4. Generalized debilitation. 5. History of bipolar disorder. PLAN: 1. Continue IV antibiotics as ordered. 2. Phenergan and Zofran for nausea. 3. She requested Decadron for migraine, which is reasonable. 4. Discharge planning underway. 5. Meds review. BERTA DR: MEGAN/hector TID: [id number]
[2021-01-12] MEDS: ACETAMINOPHEN 325 MG TABLET PO PRN (10:26)
[2021-01-12 10:46] VITALS: BP 116/71
--- NOTE | 2021-01-12 14:22 | NUR ---
PT ASKED DR. FANG ABOUT IV DEXAMETHASONE FOR HER MIGRAINES. PT STATED THIS HELPED HER MIGRAINE. DR. FANG ORDERED BID ACCUCHECKS, SINCE PT IS DIABETIC. PT RECEIVED A FEW DIFFERENT PRN MEDICATIONS TO HELP WITH HER NAUSEA AND MIGRAINE. PT TOOK A SHOWER TODAY. PT STILL C/O CONSTIPATION, RECEIVED MIRALAX TO HELP.
[2021-01-12 14:38] VITALS: BP 108/67
[2021-01-12 19:36] VITALS: BP 110/71
[2021-01-12] MEDS: PANTOPRAZOLE 40 MG TABLET. PO SCH (20:42)
[2021-01-12] MEDS: QUEtiapine 50 MG TABLET. PO SCH (20:42)
[2021-01-12] MEDS: traZODone 100 MG TABLET. PO SCH (20:42)
[2021-01-12] MEDS: clonazePAM 1 MG TABLET PO SCH (20:42)
[2021-01-12 23:00] VITALS: BP 115/74
[2021-01-13 05:15] VITALS: BP 130/79
[2021-01-13] MEDS: ATORVASTATIN CALCIUM 10 MG TABLET. PO SCH (07:41)
[2021-01-13] MEDS: SERTRALINE 100 MG TABLET. PO SCH (07:41)
[2021-01-13] MEDS: DEXAMETHASONE SOD PHOS 10 MG/ML VIAL. IV SCH (07:41)
[2021-01-13] MEDS: LACTOBACILLUS RHAMNOSUS GG 1 CAPSULE. PO SCH (07:41)
[2021-01-13] MEDS: POLYETHYLENE GLYCOL 3350 17 GM PACKET. PO SCH (07:41)
--- NOTE | 2021-01-13 09:42 | DS ---
DATE OF DISCHARGE: 01/13/2021 FINAL DISCHARGE DIAGNOSES: 1. Acute pyelonephritis, improving. 2. Hypothyroidism, on replacement. 3. Chronic migraine headaches. 4. History of bipolar disorder. HISTORY AND PHYSICAL: The patient is a 55-year-old female with multiple medical and psychiatric issues. She was admitted with generalized weakness, headache and symptoms of pyelonephritis. PHYSICAL EXAMINATION: Please see the dictated note. PERTINENT LABORATORY AND X-RAY STUDIES: Urine cultures were negative at 48 hours. There was a preliminary report of 40,000 colonies of E. coli. Pertinent laboratory studies: The hemoglobin is 11.3 g/dL, white count 9100. Chemistry panel: Unremarkable electrolytes, BUN and creatinine, nonfasting blood sugar 170. Lactic acid was normal. COURSE IN HOSPITAL: The patient was admitted. She was treated for several days of intravenous Rocephin with marked improvement. Symptoms improved. Headache was controlled with Decadron. By the 3rd hospital day, her vital signs are stable. She wanted to go home. I recommended 7 more days of cephalexin 500 mg p.o. t.i.d. and 5 more days of Decadron 12 mg p.o. daily. No tapering dose necessary. Therefore, she is discharged home with no change in her home meds. Should continue her albuterol, alprazolam, Lipitor, clonazepam p.r.n., fluticasone, cobalamin weekly, omeprazole, ondansetron, Seroquel, Zoloft, trazodone, doses unchanged. I wrote a script for cephalexin 500 mg p.o. t.i.d. for 7 days and Decadron 12 mg p.o. daily for 5 days. She will follow up with her PCP. She was discharged then from our hospital in stable condition with explicit drug and followup care. Total discharge time spent [address]: Merry TID: [id number] CC: VIKY JAUREGUI DO
--- NOTE | 2021-01-13 13:45 | NUR ---
VSS. Discharge orders placed this AM by Dr. Marshall. IV discontinued. Discharge education and instructions provided. to pick pt up @ 1330. Pt taken to front of hospital via wheelchair with belongings. Pt discharged @ 1345.
[2021-01-18] MEDS ORDERED: MECOBALAMIN 1000 MCG IM SCH (09:00)
[2021-01-18] MEDS ORDERED: ERGOCALCIFEROL 50 MCG PO SCH (09:00)
== END 2021-01-13 13:45 | disposition home or self-care (01) | DRG 682 ==
LOC: ER 02:55 → 1 SOUTH 05:49
PROVIDERS: ADMIT Internal Medicine; ATTEND Internal Medicine
DX: N17.0 Acute kidney failure with tubular necrosis (principal); R65.11 Systemic inflammatory response syndrome (SIRS) of non-infectious origin with acute organ dysfunction; N10 Acute pyelonephritis; J44.9 Chronic obstructive pulmonary disease, unspecified; G43.909 Migraine, unspecified, not intractable, without status migrainosus; F31.9 Bipolar disorder, unspecified; E11.9 Type 2 diabetes mellitus without complications; D64.9 Anemia, unspecified; E06.3 Autoimmune thyroiditis; M79.7 Fibromyalgia; R09.02 Hypoxemia; E66.01 Morbid (severe) obesity due to excess calories; F41.9 Anxiety disorder, unspecified; G47.33 Obstructive sleep apnea (adult) (pediatric); E03.9 Hypothyroidism, unspecified; K21.9 Gastro-esophageal reflux disease without esophagitis; R05.9 Cough, unspecified; R53.81 Other malaise; Z20.822 Contact with and (suspected) exposure to COVID-19; Z82.5 Family history of asthma and other chronic lower respiratory diseases; Z80.49 Family history of malignant neoplasm of other genital organs; Z80.1 Family history of malignant neoplasm of trachea, bronchus and lung; Z90.49 Acquired absence of other specified parts of digestive tract; Z98.891 History of uterine scar from previous surgery; Z88.5 Allergy status to narcotic agent; Z88.8 Allergy status to other drugs, medicaments and biological substances
CPT/HCPCS: 36415; 71260; 74177; 80048; 80053; 81001; 82803; 82947; 83605; 83690; 84484; 85025; 87077; 87086; 87186; 87426; 87804; 93005; 96361; 96365; 96375; 96376; J0696; J1100; J1885; J2270; J2405; J7120; Q0162; Q9967; U0003; 99285-25

== ENCOUNTER 2021-07-31 22:35 | Emergency (ER) | payer MEDICARE, OTHER ==
[~2021-07-31] VITALS: Ht 167.6 cm; Wt 121.5 kg
[~2021-07-31 22:35] MED LIST changes: +ALBU0.63 NEB; +ATOR10TA60 PO; +ERGO2000 PO; +FLUT1DIS3 IH; +MECO10005 IM; +OMEP40CA7 PO
[2021-07-31] MEDS ORDERED: IV NORMAL SALINE 1,000ML 1,000 ML IV ONE (23:15)
[2021-07-31] MEDS ORDERED: ONDANSETRON PF 4 MG/2 ML VIAL. IVP ONE (23:15)
[2021-07-31] MEDS ORDERED: KETOROLAC 15 MG/ML VIAL. IVP ONE (23:15)
--- NOTE | 2021-07-31 23:17 | PHYS DOC ---
Past History Past Medical History: Anxiety, Asthma, Bipolar, COPD, Diabetes, Fibromyalgia, GERD, Hypothyroid, Migraines Additional Past Medical Histor: HASHITMOTO'S Past Surgical History: Cholecystectomy, , Tonsillectomy Additional Past Surgical Histo: SINUS AND KNEE SURGERY Smoking: Non-smoker Alcohol Use: None Drug Use: None General Adult EDM: Chief Complaint: URINARY FREQUENCY HPI: HPI: Patient is a 55-year-old female coming in for complaints of burning with urination, back pain, right abdominal pain, fever and chills. Patient states that symptoms been getting worse over the past week. Patient had a colonoscopy approximately 1 week ago has not gotten the results. Has been taking [id number] medications and drinking lots of water. Patient has a history of sepsis secondary to pyelonephritis. Patient has been having diarrhea for the past 24 hours. Has nausea but no vomiting. Denies cough. Review of Systems: Review of Systems: All other systems within normal limits except for as noted in the HPI Current Medications: Current Meds: Current Medications Medications (Trade) Dose Ordered Sig/Tati Start Time Stop Time Status Last Admin Dose Admin Ketorolac Tromethamine (Toradol 15mg Vial) 15 mg 1X ONCE 07/31/21 23:15 07/31/21 23:16 UNV Ondansetron HCl (Zofran) 4 mg 1X ONCE 07/31/21 23:15 07/31/21 23:16 UNV Sodium Chloride 1,000 ml @ 1,000 mls/hr 1X ONCE 07/31/21 23:15 08/01/21 00:14 UNV Allergies: Allergies: Allergies Coded Allergies Type Severity Reaction Last Updated Verified codeine Allergy Intermediate 06/02/20 Yes haloperidol Allergy Intermediate 06/02/20 Yes metoclopramide Allergy Intermediate 06/02/20 Yes prochlorperazine Allergy Intermediate 06/02/20 Yes Physical Exam: PE: Constitutional: Well developed, well nourished, no acute distress, non-toxic appearance. [] HENT: Normocephalic, atraumatic, bilateral external ears normal, nose normal. [] Eyes: PERRLA, conjunctiva normal, no discharge. [] Neck: No rigidity, supple, no stridor. [] Cardiovascular: Regular rate and rhythm, brisk cap refill [] Lungs & Thorax: Non labored symmetric respirations, no tachypnea or respiratory distress [] Abdomen: Soft, nondistended, right lower quadrant and right flank tenderness Skin: Warm, dry, no erythema, no rash. [] Back: Unremarkable Extremities: No deformities, range of motion grossly intact, no lower extremity edema [] Neurologic: Alert and oriented X 3, no focal deficits noted. [] Psychologic: Affect normal, judgement normal, mood normal. [] Current Patient Data: Vital Signs: Vital Signs Date Time Temp Pulse Resp B/P (MAP) Pulse Ox O2 Delivery O2 Flow Rate FiO2 07/31/21 22:52 99.9 105 22 130/75 (93 95 Room Air EKG: EKG: [] Radiology/Procedures: Radiology/Procedures: [address] [address] IMAGING REPORT Signed PATIENT: JUAN QUIROS ACCOUNT: [id number] : 1965 LOCATION: ER AGE: 55 SEX: F EXAM STATUS: REG ER ORD. PHYSICIAN: JAYLEN GARY MD REASON: RLQ and flank pain PROCEDURE: CT ABDOMEN PELVIS WO CONTRAST Abdominal and Pelvis CT, Without Contrast: History: Reason: RLQ and flank pain / Spl. Instructions: / History: Comparison: January 11, 2021. Procedure: Axial images are obtained of the abdomen and pelvis, without IV or oral contrast. Oral Contrast: No Findings: Evaluation of solid organs is limited without contrast. There is prior cholecystectomy. The appendix appears normal. The colon is collapsed limiting its evaluation. Liver: Normal. Spleen: Normal. Pancreas: Normal. Adrenal Glands: Normal. Kidneys: Normal. There is no free air or free fluid. There is no lymphadenopathy. The urinary bladder appears normal. There is no pericolonic inflammation identified. Impression: No acute findings. End impression PQRS Compliance Statement: One or more of the following individualized dose reduction techniques were utilized for this examination: 1. Automated exposure control 2. Adjustment of the mA and/or kV according to patient size 3. Use of iterative reconstruction technique Electronically signed by: Monroe Navas III, MD (07/31/2021 11:41 PM) [facility] DICTATED AND SIGNED BY: MONROE NAVAS III, MD DATE: 07/31/21 [id number] CC: JAYLEN GARY MD; VIKY JAUREGUI DO ~ [] Heart Score: C/O Chest Pain: No Risk Factors: Risk Factors: DM, Current or recent (<one month) smoker, HTN, HLP, family history of CAD, obesity. Risk Scores: Score 0 - 3: 2.5% MACE over next 6 weeks - Discharge Home Score 4 - 6: 20.3% MACE over next 6 weeks - Admit for Clinical Observation Score 7 - 10: 72.7% MACE over next 6 weeks - Early Invasive Strategies Course & Med Decision Making: Course & Med Decision Making Pertinent Labs and Imaging studies reviewed. (See chart for details) [] Dragon Disclaimer: Dragon Disclaimer: This electronic medical record was generated, in whole or in part, using a voice recognition dictation system. Departure Departure: Impression: Primary Impression: Pyelonephritis Disposition: HOME / SELF CARE / HOMELESS Condition: STABLE Referrals: VIKY JAUREGUI DO (PCP) Patient Instructions: Pyelonephritis, Adult Scripts Cephalexin (CEPHALEXIN) 500 Mg Tablet 2 TAB PO BID for antibiotic for 10 Days, #40 TAB Prov: JAYLEN GARY MD 08/01/21 Ondansetron (ONDANSETRON ODT) 4 Mg Tab.rapdis 1 TAB PO PRN Q6-8HRS PRN for NAUSEA, #16 TAB Prov: JAYLEN GARY MD 08/01/21 JAYLEN GARY MD July 31, 2021 23:17
--- NOTE | 2021-07-31 23:44 | RAD ---
Abdominal and Pelvis CT, Without Contrast: History: Reason: RLQ and flank pain / Spl. Instructions: / History: Comparison: January 11, 2021. Procedure: Axial images are obtained of the abdomen and pelvis, without IV or oral contrast. Oral Contrast: No Findings: Evaluation of solid organs is limited without contrast. There is prior cholecystectomy. The appendix appears normal. The colon is collapsed limiting its eval uation. Liver: Normal. Spleen: Normal. Pancreas: Normal. Adrenal Glands: Normal. Kidneys: Normal. There is no free air or free fluid. There is no lymphadenopathy. The urinary bladder appears normal. There is no pericolonic inflammation identified. Impression: No acute findings. End impression PQRS Compliance Statement: One or more of the following individualized dose reduction techniques were utilized for this examinat ion: 1. Automated exposure control 2. Adjustment of the mA and/or kV according to patient size 3. Use of iterative reconstruction technique Electronically signed by: Deepak Camarillo III, MD (07/31/2021 11:41 PM) [facility]
[2021-08-01 00:48] LABS: CALCIUM 9.4 mg/dL (8.5-10.1); GFR 57.6; POTASSIUM 3.8 mmol/L (3.5-5.1)
[2021-08-01 00:56] LABS: ALBUMIN 3.9 g/dL (3.4-5.0); ALBUMIN/GLOBULIN RATIO 1.2 (1.0-1.7); MAGNESIUM 1.7 mg/dL (1.8-2.4); PHOSPHORUS 3.6 mg/dL (2.6-4.7); TOTAL BILIRUBIN 0.6 mg/dL (0.2-1.0); TOTAL PROTEIN 7.2 g/dL (6.4-8.2)
[2021-08-01] MEDS ORDERED: ONDANSETRON ODT 4 MG TAB.RAPDIS PO ONE (01:15)
[2021-08-01 01:49] LABS: BACTERIA,URINE FEW /HPF (0-FEW); CLARITY,URINE CLEAR; COLOR,URINE YELLOW; GLUCOSE,URINE NEG (NEG); NITRITE,URINE NEG (NEG); RBC,URINE OCC /HPF (0-2); SQUAMOUS EPITHELIAL CELL,UR OCC /LPF; UROBILINOGEN,URINE 0.2 mg/dL (0.2 mg/dL); WBC,URINE >40 /HPF (0-4)
[2021-08-01 02:00] LABS: BASO % 0 % (0-3); EOS # 0.1 x10^3/uL (0.0-0.7); EOS % 1 % (0-3); HEMATOCRIT 35.6 % (36.0-47.0); HEMOGLOBIN 11.9 g/dL (12.0-15.5); LYMPH # 1.4 x10^3/uL (1.0-4.8); LYMPH % 13 % (24-48); MEAN CORPUSCULAR HEMOGLOBIN 28 pg (25-35); MEAN CORPUSCULAR HGB CONC 33 g/dL (31-37); MEAN CORPUSCULAR VOLUME 83 fL (79-100); MONO # 0.6 x10^3/uL (0.0-1.1); MONO % 6 % (0-9); NEUT # 9.3 x10^3uL (1.8-7.7); NEUT % 81 % (31-73); PLATELET COUNT 295 x10^3/uL (140-400); RED BLOOD COUNT 4.31 x10^6/uL (3.50-5.40); RED CELL DISTRIBUTION WIDTH 14.2 % (11.5-14.5); WHITE BLOOD COUNT 11.5 x10^3/uL (4.0-11.0)
[2021-08-01] MEDS ORDERED: ONDA4TAB12 PO (02:24)
[2021-08-01] MEDS ORDERED: CEPH500T PO (02:24)
[2021-08-01] MEDS ORDERED: cefTRIAXone SODIUM 1 GM VIAL ONE (02:31)
[2021-08-01 02:45] VITALS: BP 108/51
== END 2021-08-01 02:45 | disposition home or self-care (01) ==
LOC: ER 22:35
DX: N12 Tubulo-interstitial nephritis, not specified as acute or chronic (principal); J45.909 Unspecified asthma, uncomplicated; F31.9 Bipolar disorder, unspecified; J44.9 Chronic obstructive pulmonary disease, unspecified; E11.9 Type 2 diabetes mellitus without complications; M79.7 Fibromyalgia; K21.9 Gastro-esophageal reflux disease without esophagitis; E03.9 Hypothyroidism, unspecified; G43.909 Migraine, unspecified, not intractable, without status migrainosus; Z90.49 Acquired absence of other specified parts of digestive tract; Z98.890 Other specified postprocedural states; Z88.5 Allergy status to narcotic agent; Z88.8 Allergy status to other drugs, medicaments and biological substances
CPT/HCPCS: 36415; 74176; 80053; 81001; 83690; 83735; 84100; 85025; 87077; 87086; 87186; 96361; 96365; 96375; 99284; J0696; J1885; J2405; J3010; J7030; Q0162